=== PATIENT | male | born 1955 | race Caucasian/White ===

== ENCOUNTER 2024-02-15 20:26 | Observation (INO) ==
--- OUTSIDE RECORDS SUMMARY | 2024-02-15 20:31 | External Medical Summary | Summary of Care ---
Author Name Unknown Organization [facility] Address [address] [place] [address] Phone [phone] Care Team Providers Care Product Support Technician Name Role Phone Dariusz Billingsley MD Primary Care Provider [phone] [phone] Reason for Visit * Reason Onset Date Comments Precert Denied 12/29/2023 Please see note Encounter Details Date Type Department Care Team (Late st Contact Info) Description 12/29/2023 Telephone [facility], [address] [address] Ranjit Gregory MD [address] [place] [address] Precert Denied (Please see note) Allergies No known active allergiesdocumented as of this encounter (statuses as of 01/19/2024) Medications Medication Sig Dispensed Refills Start Date End Date Status Aspirin 81 MG Tablet Take 1 Tablet by mouth in the morning. Active amoxicillin (AMOXIL) 500 MG Capsule Take 4 tablets 1 hour prior to dental procedures 4 Cap 11 12/09/2017 Active Additional Information Patient not taking.Reported on 11/14/2023 sildenafil (REVATIO) 20 MG Tablet 2 to 4 tablets 1 hour before relations as needed. 40 Tab 11/04/2019 Active Gabapentin 300 MG Oral Capsule (Neurontin)Indicati ons:Cervical radicular pain Take by mouth 1 Capsule in the morning AND 1 Capsule before bedtime. 60 Capsule 01/31/2022 Active Additional Information Patient not taking.Reported on 09/12/2023 LORazepam 0.5 MG Oral Tablet (Ativan)Indications :RLS (restless legs syndrome) Take 1 Tablet by mouth at bedtime. 90 Tablet 10/11/2022 Active Additional Information Patient not taking.Reported on 11/14/2023 Rosuvastatin Calcium 10 MG Oral Tablet (Crestor) Take 1 Tablet by mouth in the morning. 90 Tablet 3 12/30/2022 Active Celecoxib 200 MG Oral Capsule (CeleBREX)Indicatio ns:Generalized osteoarthritis Take 1 Capsule by mouth in the morning. For pain. 30 Capsule 5 04/24/2023 Active Additional Information Patient not taking.Reported on 09/12/2023 Sildenafil Citrate 100 MG Oral Tablet TAKE 1 TABLET BY MOUTH EVERY DAY NEEDED 10 Tablet 10 09/10/2023 Active Acetaminophen ER 650 MG Oral Tablet Extended Release (Tylenol ER) Take by mouth. Active predniSONE 20 MG Oral Tablet (Deltasone) take 4 tablets by mouth daily for 3 days then 3 daily for 3 days ... (REFER TO PRESCRIPTION NOTES). 09/11/2023 Active Ibuprofen 600 MG Oral Tablet (Motrin) Take 1 Tablet by mouth every 6 hours as needed. Active Lisinopril 5 MG Oral Tablet (Prinivil)Indicatio ns:Bicuspid aortic valve take 1 tablet by mouth every morning 90 Tablet 12/03/2023 Active Tamsulosin HCl 0.4 MG Oral Capsule (Flomax)Indications :BPH with obstruction/lower urinary tract symptoms Take 1 Capsule by mouth in the morning. 90 Capsule 1 12/24/2023 Active Omeprazole 20 MG Oral Capsule Delayed Release (PriLOSEC) Take 1 Capsule by mouth in the morning. 90 Capsule 1 12/24/2023 Active Citalopram Hydrobromide 20 MG Oral Tablet (CeleXA)Indications :CARLA (generalized anxiety disorder) Take 1 Tablet by mouth in the morning. 90 Tablet 1 11/21/2022 01/12/20 24 Discontinu ed(Refill) documented as of this encounter (statuses as of 01/19/2024) Active Problems Problem Noted Date Diagnosed Date Obesity, Class II, BMI 35-39.9, isolated (see ac tual BMI) 10/11/2022 Organic erectile dysfunction 10/11/2022 Generalized osteoarthritis 10/11/2022 Neuroforaminal stenosis of cervical spine 2021 Dyslipidemia 12/29/2018 HTN, goal below 130/80 12/29/2018 Moderate aortic stenosis 03/02/2018 Moderate aortic insufficiency 03/02/2018 Gastroesophageal reflux disease with esophagitis 08/26/2017 CARLA (generalized anxiety disorder) 08/26/2017 BPH with obstruction/lower urinary tract symptom s 10/10/2014 KRISTAN (obstructive sleep apnea) 10/10/2014 Bicuspid aortic valve 02/22/2014 documented as of this encounter (statuses as of 01/19/2024) Resolved Problems Problem Noted Date Diagnosed Date Resolved Date RLS (restless legs syndrome) 10/11/2022 10/11/2022 Prediabetes 05/20/2022 10/11/2022 Overview: Per Prediabetes protocol Bilateral chronic serous otitis media 01/05/2021 03/21/2021 Mild aortic regurgitation 03/02/2018 Mild aortic stenosis by prior echocardiogram 8 03/02/2018 Unilateral inguinal hernia w ithout obstruction or gangrene 01/22/2016 08/26/2017 Umbilical hernia without obs truction and without gangrene 01/22/2016 08/26/2017 S/P bilateral hip replacements 01/21/2014 08/26/2017 History of bicuspid aortic valve 01/21/2014 02/22/2014 Tinea cruris 01/21/2014 04/12/2014 OTHER FUNCTIONAL DISORDER OF BLADDER 12/27/2003 01/21/2014 Aortic valve insufficiency, congenital 12/27/2003 01/21/2014 CVA 04/27/2002 08/26/2017 Fat embolism as an early com plication of trauma 03/09/2002 08/26/2017 OTHER FUNCTIONAL DISORDER OF BLADDER 01/22/2000 08/26/2017 documented as of this encounter (statuses as of 01/19/2024) Immunizations Name Administration Dates Next Due COVID-19 mRNA, LNP-s, No Pre serve, 2-Dose Series (GrayBug) 03/20/2021,07/18/2020,06/27/2020 Covid-19, Mrna, Lnp-s, Pf, B ivalent, 30 Mcg, IM, 12 yrs and above (GrayBug) 04/21/2022 Pneumococcal Conjugate Vacci ne, 20-valent ([id number]) 03/16/2022 Pneumococcal Polysaccharide PPV23 (Pneumovax) 03/23/2021 Season Influenza, Quad, PF, Adjuvanted, 65+ Yrs, IM (FLUAD) 03/16/2022 Seasonal Influenza, PF, 6 M & above, IM , (FluLaval or Fluzone) 05/03/2019,03/02/2018 Seasonal Influenza, Quadriva lent Hd (Fluzone Hd) 03/23/2021 Seasonal Influenza, Split, I IV3, With Preserve, Inj 02/22/2014,06/12/2000 02/22/2015 TDAP (age 10 and older)(Boostrix) 01/21/2014 Varicella Zoster Vaccine (Adult) 12/18/2015 Zoster Vaccine Recombinant (Shingrix) 03/16/2022 documented as of this encounter Social History Tobacco Use Types Packs/Day Years Used Date Smoking Tobacco: Former Cigarettes Q uit: 02/07/1974 Smokeless Tobacco: Former Quit: 02/07/1979 Alcohol Use Standard Drinks/Week Comments Yes 0 (1 standard drink = 0.6 oz pur e alcohol) occasional PHQ-2 Answer Date Recorded PHQ Adult Total Score 0 01/05/2021 Hunger Vital Sign Answer Date Recorded Within the past 12 months, y ou worried that your food would run out before you got the money to buy more. Never true 05/06/20 22 Within the past 12 months, t he food you bought just didn't last and you didn't have money to get more. Never true 05/06/2022 Sex and Gender Information Value Date Recorded Sex Assigned at Male 05/06/2022 6:17 PM EST Gender Identity Male 05/06/2022 6:17 PM EST Sexual Orientation Not on file Job Start Date Occupation Industry Not on file Not on file Not on file documented as of this encounter Miscellaneous Notes * Telephone Encounter - Ney Grimm MA - 01/19/2024 2:51 PM EDT Made patient aware, verbs understanding * Telephone Encounter - Ney Grimm MA - 01/19/2024 2:49 PM EDT Appeal was approved Auth Number: [id number] Valid Dates: 01/16/24-07/18/23 Right TFESI L5-S1 Injection * Telephone Encounter - Ney Grimm MA - 01/13/2024 12:52 PM EDT Made patient aware, verbs understanding Appeal letter completed and faxed * Telephone Encounter - Ranjit Gregory MD - 01/13/2024 12:05 PM EDT Appeal letter saved in chart. Please send to Samm Stroud along with supporting documentation (PT notes from [facility], office notes, etc). Thanks, Ranjit Gregory MD Interventional Pain Physician [facility] Anesthesiology [facility] * Telephone Encounter - Ney Grimm MA - 01/08/2024 10:32 AM EDT Made aware, verbs understanding called the insurance company and discussed the appeal process. Patient would like our office to complete the appeal to expedite this process. Will discuss with Colt about completing a "appeal letter." Patient received PT at [facility] in 2023- notes scanned in chart. Continues to do HEP- in nurses note from 11/14/23. * Telephone Encounter - Ney Grimm MA - 01/06/2024 2:20 PM EDT LM to CB Unable to Reach Insurance Denial- LM Explaining Procedure is cancelled for 01/15/24 Patient can contact his insurance company and try to appeal this decision. Will discuss with Colt after he returns. Right TFESI L5-S1 Injection * Telephone Encounter - Ney Grimm MA - 01/06/2024 2:08 PM EDT Called [employer]- unfortunately, this "Auth" is beyond the time to complete a P2P, and the case will remain denied. Procedure will need cancelled. The only option is to appeal the decision and completean appeal letter. Please refer to the denial for the appeal info. Denial Reasons: Active program to Manage Pain: -Physical Therapy -Functional Rehab Program -HEP * Telephone Encounter - Ranjit Gregory MD - 01/06/2024 9:38 AM EDT Please build time for a P2P in my schedule if possible next week. If it can be completed by a ROUTE CARRIER,please schedule with Hema. There is often a limited time period for which a peer to peer can be completed and I was on vacation when this was sent. Thanks, Ranjit Gregory MD Interventional Pain Physician [facility] Anesthesiology [facility] * Telephone Encounter - Elyse Dumont OSA - 12/29/2023 4:15 PM EDT This is to inform you that the following authorization request for Luke Briones has been denied. DOS- 01/15/24 Procedure- [address] Insurance- [facility] In/Out of Network- [place] Reason for Denial- Unable to authorize at this time with information provided. Peer to Peer can be performed by calling [phone] with tracking number [id number] or [id number]. Thank You, KRISTAN Govea 12/29/2023, 4:16 PM documented in this encounter Plan of Treatment Upcoming Encounters Date Type Department Care Team (Late st Contact Info) Description 02/19/2024 Hospital Encounter OR [facility], Operating Room [facility] [address] [place] [id number] Ranjit Gregory MD [address] [place] [address] 03/23/2024 8:30 AM EDT Office Visit [facility], [facility] [address] [facility] [place] [address] Ranjit Gregory MD [address] [place] [address] Scheduled Procedures Name Priority Associated Diagnoses Date/Ti me INJECTION TRANSFORAMINAL EPI DURAL LUMBAR OR SACRAL Lumbar radiculopathy COLONOSCOPY FLEXIBLE PROXIMAL DIAGNOSTIC Recall History of colon polyps Health Maintenance Due Date Last Done Comments Cologuard 02/09/2000 Fecal Occult Blood Test 02/09/2000 Sigmoidoscopy 02/09/2000 AAA Screening 02/09/2020 Adult Wellness Visit 2021 Depression Screening 01/05/2022 01/05/2021 Zoster Vaccines (3 of 3) 05/11/2022 03/16/2022, 12/07 COVID-19 Vaccine ( season) 2023 04/21/2022, 03/20/2021, 07/18/2020, Additional history exists DTaP,Tdap,and Td Vaccines (2 - Td or Tdap) 01/22/2024 01/21/2014 Influenza Vaccine (FLU shot) (#1) 2024 03/16/2022, 03/23/2021, 05/03/2019, Additional history exists GFR 12/31/2024 01/01/2024, 07/11, 10/01/2021, Additional history exists Albumin/Creatinine Ratio 07/31/2025 07/31/2022 Colonoscopy 11/09/2026 11/09/2021, 07/24/2010 Colorectal Cancer Screening 11/09/2026 Diabetes Screening 12/31/2026 01/01/2024, 0 07/31/2022, 07/31/2022, Additional history exists Lipid Panel 12/31/2028 01/01/2024, 08/07, 03/07/2020, Additional history exists RETIRED - COLONOSCOPY-EVERY 5 YRS AGES 18-100 Discontinued 11/09/2021, 07/24/2010 Pneumococcal Vaccine: 65+ Years Completed 03/16/2022, 03/23/2021 HPV (Gardasil) Vaccine Aged Out No lo nger eligible based on patient's age to complete this topic Hepatitis B Vaccine Aged Out No longe r eligible based on patient's age to complete this topic MENINGOCOCCAL (MENACTRA/MENVEO) Aged Out No longer eligible based on patient's age to complete this topic documented as of this encounter Medical Devices Implanted Type Area Unattended Ground Sensor Specialist Device Identifier Shelf Expiration Date Model / Serial / Lot Mesh 3dmax 4.1x6.2in Lft Lrg - [id number] Implanted:Qty: 1 on 01/22/2016 by Omid Dumont MD at OR [facility] Left: Groin CR BARD : DAVOL 09/03/2020 [id number] / / [id number] documented as of this encounter Care Teams Product Support Technician Relationship Specialty Start Date End Date Dariusz Billingsley MD [address] [place] [address] PCP - General Family Medicine 03/23/21 documented as of this encounter
--- OUTSIDE RECORDS SUMMARY | 2024-02-15 20:31 | External Medical Summary | Summary of Care ---
Author Name Unknown Organization [facility] Address [address] [place] [address] Phone [phone] Care Team Providers Care Professor Of Languages Name Role Phone Dariusz Billingsley MD Primary Care Provider [phone] [phone] Reason for Visit * Reason Onset Date Comments Precert Denied 12/29/2023 Please see note Encounter Details Date Type Department Care Team (Late st Contact Info) Description 12/29/2023 Telephone [facility], [address] [address] Ranjit Gregory MD [address] [place] [address] Precert Denied (Please see note) [...] mRNA, LNP-s, No Pre serve, 2-Dose Series (Spot Influence) 03/20/2021,07/18/2020,06/27/2020 Covid-19, Mrna, Lnp-s, Pf, B ivalent, 30 Mcg, IM, 12 yrs and above (Spot Influence) 04/21/2022 Pneumococcal Conjugate Vacci ne, 20-valent ([id number]) 03/16/2022 Pneumococcal Polysaccharide PPV23 (Pneumovax) 03/23/2021 Season [...] Thanks, Ranjit Gregory MD Interventional Pain Physician [facility] Anesthesiology [facility] * Telephone Encounter - Ney Grimm [...] MA - 01/06/2024 2:08 PM EDT Called Samm- unfortunately, this "Auth" is beyond the time [...] If it can be completed by a DIETARY AIDE,please schedule with Hema. There is often a limited time period for which a peer to peer can be completed and I was on vacation when this was sent. Thanks, Ranjit Gregory MD Interventional Pain Physician [facility] Anesthesiology [facility] * Telephone Encounter - Elyse Dumont OSA - 12/29/2023 4:15 PM EDT This is to inform you that the following authorization request for Luke Briones has been denied. DOS- 01/15/24 Procedure- [address] Insurance- [facility] In/Out of Network- [place] Reason for Denial- Unable to authorize at this time with information provided. Peer to Peer can be performed by calling [phone] with tracking number [id number] or [id number]. Thank You, KRISTAN Govea 12/29/2023, 4:16 PM documented in this encounter Plan of Treatment Upcoming Encounters Date Type Department Care Team (Late st Contact Info) Description 02/20/2024 9:30 AM EDT Office Visit [facility], [address] [address] Ranjit Gregory MD [address] [place] [address] Scheduled Procedures Name Priority Associated Diagnoses Date/Ti [...] this encounter Medical Devices Implanted Type Area Oil Expeller Device Identifier Shelf Expiration Date Model / Serial / Lot Mesh 3dmax 4.1x6.2in Lft Lrg - [id number] Implanted:Qty: 1 on 01/22/2016 by Omid Dumont MD at OR [facility] Left: Groin CR BARD : DAVOL 09/03/2020 [id number] / / [id number] documented as of this encounter Care Teams Professor Of Languages Relationship Specialty Start Date End Date Dariusz Billingsley MD [address] [place] [address] PCP - General Family Medicine 03/23/21 documented as of this encounter
--- OUTSIDE RECORDS SUMMARY | 2024-02-15 20:31 | External Medical Summary | Summary of Care ---
Author Name Unknown Organization [facility] Address [address] [place] [address] Phone [phone] Care Team Providers Care Relocation Commissioner Name Role Phone Dariusz Billingsley MD Primary Care Provider [phone] [phone] Reason for Visit * Reason Onset Date Comments Precert Denied 12/29/2023 Please see note Encounter Details Date Type Department Care Team (Late st Contact Info) Description 12/29/2023 Telephone [facility], [address] [address] Ranjit Gregory MD [address] [place] [address] Precert Denied (Please see note) Allergies No known active allergiesdocumented as of this encounter (statuses as of 01/13/2024) Medications Medication Sig Dispensed Refills Start Date [...] 11/04/2019 Active Gabapentin 300 MG Oral Capsule (Neurontin)Indicatio ns:Cervical radicular pain Take by mouth 1 Capsule in the morning AND 1 Capsule before bedtime. 60 Capsule 01/31/2022 Active Additional Information Patient not taking.Reported on 09/12/2023 LORazepam 0.5 MG Oral Tablet (Ativan)Indications: RLS (restless legs syndrome) Take 1 Tablet by mouth at bedtime. 90 Tablet 10/11/2022 Active Additional Information Patient not taking.Reported on 11/14/2023 Citalopram Hydrobromide 20 MG Oral Tablet (CeleXA)Indications: CARLA (generalized anxiety disorder) Take 1 Tablet by mouth in the morning. 90 Tablet 1 11/21/2022 Active Rosuvastatin Calcium 10 MG Oral Tablet (Crestor) Take 1 Tablet by mouth in the morning. 90 Tablet 3 12/30/2022 Active Celecoxib 200 MG Oral Capsule (CeleBREX)Indication s:Generalized osteoarthritis Take 1 Capsule by mouth in [...] needed. Active Lisinopril 5 MG Oral Tablet (Prinivil)Indication s:Bicuspid aortic valve take 1 tablet by mouth every morning 90 Tablet 12/03/2023 Active Tamsulosin HCl 0.4 MG Oral Capsule (Flomax)Indications: BPH with obstruction/lower urinary tract symptoms Take 1 Capsule by mouth in the morning. 90 Capsule 1 12/24/2023 Active Omeprazole 20 MG Oral Capsule Delayed Release (PriLOSEC) Take 1 Capsule by mouth in the morning. 90 Capsule 1 12/24/2023 Active documented as of this encounter (statuses as of 01/13/2024) Active Problems Problem Noted Date Diagnosed Date [...] as of this encounter (statuses as of 01/13/2024) Resolved Problems Problem Noted Date Diagnosed Date [...] as of this encounter (statuses as of 01/13/2024) Immunizations Name Administration Dates Next Due COVID-19 mRNA, LNP-s, No Pre serve, 2-Dose Series (Confer) 03/20/2021,07/18/2020,06/27/2020 Covid-19, Mrna, Lnp-s, Pf, B ivalent, 30 Mcg, IM, 12 yrs and above (Pfizer) 04/21/2022 Pneumococcal Conjugate Vacci ne, 20-valent ([id number]) 03/16/2022 Pneumococcal Polysaccharide PPV23 (Pneumovax) 03/23/2021 Season [...] Thanks, Ranjit Gregory MD Interventional Pain Physician [facility] Anesthesiology [facility] * Telephone Encounter - Ney Grimm [...] If it can be completed by a PELLET PREPARATION OPERATOR,please schedule with Hema. There is often a limited time period for which a peer to peer can be completed and I was on vacation when this was sent. Thanks, Ranjit Gregory MD Interventional Pain Physician [facility] Anesthesiology [facility] * Telephone Encounter - Elyse Dumont OSA - 12/29/2023 4:15 PM EDT This is to inform you that the following authorization request for Luke Briones has been denied. DOS- 01/15/24 Procedure- [id number] Insurance- [facility] In/Out of Network- [place] Reason for Denial- Unable to authorize at this time with information provided. Peer to Peer can be performed by calling [phone] with tracking number [id number] or [id number]. Thank You, KRISTAN Govea 12/29/2023, 4:16 PM documented in this encounter Plan of Treatment Upcoming Encounters Date Type Department Care Team (Late st Contact Info) Description 02/20/2024 9:30 AM EDT Office Visit Inter[facility] Pain Center, [address] [place] [address] Ranjit Gregory MD [address] [place], [place] [address] [address] Scheduled Procedures Name Priority Associated Diagnoses Date/Ti me INJECTION TRANSFORAMINAL EPI DURAL LUMBAR OR SACRAL Lumbar radiculopathy COLONOSCOPY FLEXIBLE PROXIMAL DIAGNOSTIC Recall History of colon polyps Health Maintenance Due Date Last Done Comments Cologuard 02/09/2000 Fecal Occult Blood Test 02/09/2000 Sigmoidoscopy 02/09/2000 AAA Screening 02/09/2020 Depression Screening 01/05/2022 01/05/2021 Zoster Vaccines (3 [...] this encounter Medical Devices Implanted Type Area Establishment Guide Device Identifier Shelf Expiration Date Model / Serial / Lot Mesh 3dmax 4.1x6.2in Lft Lrg - [id number] Implanted:Qty: 1 on 01/22/2016 by Omid Dumont MD at OR [facility] Left: Groin CR BARD : DAVOL 09/03/2020 [id number] / / [id number] documented as of this encounter Care Teams Relocation Commissioner Relationship Specialty Start Date End Date Dariusz Billingsley MD [address] [place] [address] PCP - General Family Medicine 03/23/21 documented as of this encounter
--- OUTSIDE RECORDS SUMMARY | 2024-02-15 20:31 | External Medical Summary | Summary of Care ---
Author Name Unknown Organization [facility] Address [address] [place] [address] Phone [phone] Care Team Providers Care Dude Ranch Manager Name Role Phone Dariusz Billingsley MD Primary Care Provider [phone] [phone] Reason for Visit * Reason Onset Date Comments Precert Denied 12/29/2023 Please see note Encounter Details Date Type Department Care Team (Late st Contact Info) Description 12/29/2023 Telephone [facility], [address] [address] Ranjit Gregory MD [address] [place] [address] Precert Denied (Please see note) [...] mRNA, LNP-s, No Pre serve, 2-Dose Series (Picturelife) 03/20/2021,07/18/2020,06/27/2020 Covid-19, Mrna, Lnp-s, Pf, B ivalent, 30 Mcg, IM, 12 yrs and above (Picturelife) 04/21/2022 Pneumococcal Conjugate Vacci ne, 20-valent ([id number]) 03/16/2022 Pneumococcal Polysaccharide PPV23 (Pneumovax) 03/23/2021 Season [...] Thanks, Ranjit Gregory MD Interventional Pain Physician [facility] Anesthesiology [facility] * Telephone Encounter - Ney Grimm MA [...] If it can be completed by a NURSE TRANSITION,please schedule with Hema. There is often a limited time period for which a peer to peer can be completed and I was on vacation when this was sent. Thanks, Ranjit Gregory MD Interventional Pain Physician [facility] Anesthesiology [facility] * Telephone Encounter - Elyse Dumont OSA - 12/29/2023 4:15 PM EDT This is to inform you that the following authorization request for Luke Briones has been denied. DOS- 01/15/24 Procedure- [id number] Insurance- [facility] In/Out of Network- [place] Reason for Denial- Unable to authorize at this time with information provided. Peer to Peer can be performed by calling [phone] with tracking number [id number] or [id number]. Thank You, KRISTAN Govea 12/29/2023, 4:16 PM documented in this encounter Plan of Treatment Upcoming Encounters Date Type Department Care Team (Late st Contact Info) Description 02/20/2024 9:30 AM EDT Office Visit [facility], [address] [address] Ranjit Gregory MD [address] [place] [address] Scheduled Procedures Name Priority Associated Diagnoses Date/Ti [...] this encounter Medical Devices Implanted Type Area Trekking Guide Device Identifier Shelf Expiration Date Model / Serial / Lot Mesh 3dmax 4.1x6.2in Lft Lrg - [id number] Implanted:Qty: 1 on 01/22/2016 by Omid Dumont MD at OR [facility] Left: Groin CR BARD : DAVOL 09/03/2020 [id number] / / [id number] documented as of this encounter Care Teams Dude Ranch Manager Relationship Specialty Start Date End Date Dariusz Billingsley MD [address] [place] [address] PCP - General Family Medicine 03/23/21 documented as of this encounter
--- OUTSIDE RECORDS SUMMARY | 2024-02-15 20:31 | External Medical Summary | Summary of Care ---
Author Name Unknown Organization [facility] Address [address] [place] [address] Phone [phone] Care Team Providers Care Misdraw Hand Name Role Phone Fanny Bill MD Primary Care Provider [phone] Reason for Visit * Reason Onset Date Comments Medication Refill 01/12/2024 Encounter Details Date Type Department Care Team (Late st Contact Info) Description 01/12/2024 Refill Family Practice [facility] [address] [facility] [place] [address] Fanny Bill MD [address] [place] [address] CARLA (generalized anxiety disorder) Allergies No known active allergiesdocumented as of [...] by mouth in the morning. 90 Tablet 01/13/2024 Active Citalopram Hydrobromide 20 MG Oral Tablet [...] mRNA, LNP-s, No Pre serve, 2-Dose Series ([employer]) 03/20/2021,07/18/2020,06/27/2020 Covid-19, Mrna, Lnp-s, Pf, B ivalent, 30 Mcg, IM, 12 yrs and above ([employer]) 04/21/2022 Pneumococcal Conjugate Vacci ne, 20-valent ([id number]) 03/16/2022 Pneumococcal Polysaccharide PPV23 (Pneumovax) 03/23/2021 Season Influenza, Quad, PF, Adjuvanted, 65+ Yrs, IM (FLUAD) 03/16/2022 Seasonal Influenza, PF, 6 M & above, IM , (FluLaval or Fluzone) 05/03/2019,03/02/2018 Seasonal Influenza, Quadriva lent Hd (Fluzone Hd) 03/23/2021 Seasonal Influenza, Split, I IV3, With Preserve, Inj 02/22/2014 02/22/2015 TDAP (age 10 and older)(Boostrix) 01/21/2014 [...] encounter Miscellaneous Notes * Telephone Encounter - Fanny Bill MD - 01/13/2024 4:15 PM EDTSigned Prescriptions: Disp Refills Citalopram Hydrobromide 20 MG Oral Tablet *90 Tab*0 Sig: Take 1 Tablet by mouth in the morning. Authorizing Provider: FANNY BILL * Telephone Encounter - Judi Araiza CPhT - 01/13/2024 3:57 PM EDTPending Prescriptions: Disp Refills Citalopram Hydrobromide 20 MG Oral Tablet *90 Tab*0 Sig: Take 1 Tablet by mouth in the morning. * Telephone Encounter - Judi Araiza CPhT - 01/13/2024 3:55 PM EDT Received message from [facility] regarding patient needing an appointment. Call Placed, Pt was agreeable to set up appointment but did not want to schedule at this time. Patient advised they will call back to set up appointment. Thank you, Judi Araiza CPhT Cnc Laser Operator III [facility] ([facility]) [address] [place] [address], [address] 38-74 * Telephone Encounter - Laureen Real [facility] - 01/13/2024 3:22 PM EDTPending Prescriptions: Disp Refills Citalopram Hydrobromide 20 MG Oral Tablet *90 Tab*0 Sig: Take 1 Tablet by mouth in the morning. * Telephone Encounter - Laureen Real RPh - 01/13/2024 3:22 PM EDT 2nd attempt Please contact patient so that an appointment can be scheduled with his PRIMARY CARE provider before this refill can be authorized. After contacting patient, please forward request to Fanny Bill MD. Med not filled since 11/21/22. Last filled in May per adherence tracker. Last Visit: 10/11/2022 (in office), 08/19/2023 (telemedicine) Next Visit: Visit date not found Thank you, Laureen Real, PharmD Clinical Pharmacist [facility]) 01/13/24 3:21 PM [phone] * Telephone Encounter - Laureen Real RPh - 01/13/2024 3:21 PM EDT Pending Prescriptions: Disp Refills Citalopram Hydrobromide 20 MG Oral Tablet*90 Tab*0 Sig: Take 1 Tablet by mouth in the morning. Last Visit: 10/11/2022 (in office), 08/19/2023 (telemedicine) Next Visit: Visit date not found If no future appointments scheduled, and last appointment is greater than a year ago, please schedule patient for a follow-up appointment Last date the medication was ordered: 11/21/22 Pharmacy: [id number] [facility] Is this request for a controlled substance? No Urine Drug Screen:No results found for this or any previous visit. Patient Phone Numbers Labs: Lab Results Component Value Date/Time CREAT 0.9 01/01/2024 07:35 AM CREAT 0.8 03/07/2020 12:00 AM CREAT 1.0 01/01/2016 03:28 PM POTASSIUM 4.6 01/01/2024 07:35 AM POTASSIUM 4.3 03/07/2020 12:00 AM POTASSIUM 4.5 01/01/2016 03:28 PM TSH 1.43 07/31/2022 02:49 PM LDLCALC 48 01/01/2024 07:35 AM LDLCALC 48 03/07/2020 12:00 AM ALT 36 01/01/2024 07:35 AM ALT 29 03/07/2020 12:00 AM ALT 32 01/08/1999 11:42 AM HGBA1C 5.5 07/31/2022 02:49 PM documented in this encounter Plan of Treatment Upcoming Encounters Date Type Department Care Team (Late st Contact Info) Description 02/20/2024 9:30 AM EDT Office Visit Interventional Pain Center, [facility] [address] [place] [address] Ranjit Gregory MD [address] [facility] [place] [address] Scheduled Procedures Name Priority Associated Diagnoses Date/Ti [...] 05/03/2019, Additional history exists GFR 12/31/2024 01/01/2024, /07/2022, 10/01/2021, Additional history exists Albumin/Creatinine Ratio 07/31/2025 [...] this encounter Medical Devices Implanted Type Area Mason Tender Device Identifier Shelf Expiration Date Model / Serial / Lot Mesh 3dmax 4.1x6.2in Lft Lrg - [id number] Implanted:Qty: 1 on 01/22/2016 by Omid Dumont MD at OR [facility] Left: Groin CR BARD : DAVOL 09/03/2020 [id number] / / [id number] documented as of this encounter Visit Diagnoses Diagnosis CARLA (generalized anxiety disorder) Generalized anxiety disorder documented in this encounter Care Teams Misdraw Hand Relationship Specialty Start Date End Date Fanny Bill MD [address] [facility] [place] [address] PCP - General Family Medicine 03/23/21 documented as of this encounter
--- OUTSIDE RECORDS SUMMARY | 2024-02-15 20:31 | External Medical Summary | Summary of Care ---
Author Name Unknown Organization [facility] Address [address] [place] [address] Phone [phone] Care Team Providers Care Cotton Program Technician Name Role Phone Dariusz Billingsley MD Primary Care Provider [phone] Reason for Visit * Reason Onset Date Comments Precert Denied 12/29/2023 Please see note Encounter Details Date Type Department Care Team (Late st Contact Info) Description 12/29/2023 Telephone Interventional Pain Center, [address] [address] Ranjit Gregory MD [address] [place] [address] Precert Denied (Please see note) [...] mRNA, LNP-s, No Pre serve, 2-Dose Series ([employer]) 03/20/2021,07/18/2020,06/27/2020 Covid-19, Mrna, Lnp-s, Pf, B ivalent, 30 Mcg, IM, 12 yrs and above (Pfizer) 04/21/2022 Pneumococcal Conjugate Vacci ne, 20-valent ([id number]) 03/16/2022 Pneumococcal Polysaccharide PPV23 (Pneumovax) 03/23/2021 Season [...] encounter Miscellaneous Notes * Telephone Encounter - Ranjit Gregory MD - 01/13/2024 12:05 PM EDT Appeal letter saved in chart. Please send to Samm Stroud along with supporting documentation (PT notes from Cristian, office notes, etc). Thanks, Ranjit Gregory MD Interventional Pain Physician [facility] Anesthesiology [facility] * Telephone Encounter - Ney Grimm [...] If it can be completed by a VAMP CUT OUT WORKER,please schedule with Hema. There is often a limited time period for which a peer to peer can be completed and I was on vacation when this was sent. Thanks, Ranjit Gregory MD Interventional Pain Physician [facility] Anesthesiology [facility] * Telephone Encounter - Elyse Dumont OSA - 12/29/2023 4:15 PM EDT This is to inform you that the following authorization request for Luke Briones has been denied. DOS- 01/15/24 Procedure- [id number]- [facility] In/Out of Network- [place] Reason for Denial- Unable to authorize at this time with information provided. Peer to Peer can be performed by calling [phone] with tracking number [id number] or [id number]. Thank You, KRISTAN Govea 12/29/2023, 4:16 PM documented in this encounter Plan of Treatment Upcoming Encounters Date Type Department Care Team (Late st Contact Info) Description 02/20/2024 9:30 AM EDT Office Visit Interventional Pain Center, [address] [address] Ranjit Gregory MD [address] [place] [address] Scheduled Procedures Name Priority Associated Diagnoses [...] this encounter Medical Devices Implanted Type Area Drying Can Worker Device Identifier Shelf Expiration Date Model / Serial / Lot Mesh 3dmax 4.1x6.2in Lft Lrg - [id number] Implanted:Qty: 1 on 01/22/2016 by Omid Dumont MD at OR [facility] Left: Groin CR BARD : DAVOL 09/03/2020 [id number] / / [id number] documented as of this encounter Care Teams Cotton Program Technician Relationship Specialty Start Date End Date Dariusz Billingsley MD [address] [place] [address] PCP - General Family Medicine 03/23/21 documented as of this encounter
--- OUTSIDE RECORDS SUMMARY | 2024-02-15 20:32 | External Medical Summary ---
Author Name Unknown Address Unknown Organization K01:[facility]ORATORY [facility] - [address] [place] [address] Laboratory Report Ordering Provider Test Date Status VIBHA DENNISLAURA 01/01/2024 07:35:08 Final Observation Date Value Abnormality Reference (Units ) Status BUN 01/01/2024 07:35:08 27 Above high normal 6-20 (mg/dL) Final Creatinine 01/01/2024 07:35:08 0.9 0.6-1.2 (mg/dL) Final Glomerular filtration rate/1.73 sq M.predicted [Volume Rate/Area] in Serum, Plasma or Blood by Creatinine-based formula (CKD-EPI) 01/01/2024 07:35:08 >90 >=60 (mL/min) Final eGFR is calculated based on the CKD-EPI 2020 equation. Sodium 01/01/2024 07:35:08 141 135-146 (m mol/L) Final Potassium 01/01/2024 07:35:08 4.6 3.5-5.1 (m mol/L) Final Cl 01/01/2024 07:35:08 106 98-107 (mm ol/L) Final CO2 01/01/2024 07:35:08 24 22-32 (mmo l/L) Final Anion gap 01/01/2024 07:35:08 11 7-15 (mmol /L) Final Glucose 01/01/2024 07:35:08 84 70-120 (mg /dL) Final Albumin 01/01/2024 07:35:08 3.9 3.8-5.0 (g /dL) Final AST (Aspartate aminotransferase) 01/01/2024 07:35:08 32 10-50 (U/L) Final Alk Phos 01/01/2024 07:35:08 66 35-130 (U/ L) Final Bilirubin, Total 01/01/2024 07:35:08 0.3 <=1 .2 (mg/dL) Final Calcium 01/01/2024 07:35:08 9.2 8.4-10.2 ( mg/dL) Final Protein 01/01/2024 07:35:08 6.0 6.0-8.3 (g /dL) Final ALT (Alanine aminotransferase) 01/01/2024 07:35:08 36 10-50 (U/L) Final Performing Location LAB[facility]ATORY [facility] - [facility] [address] [facility] [address]
--- OUTSIDE RECORDS SUMMARY | 2024-02-15 20:32 | External Medical Summary | Summary of Care ---
Author Name Unknown Organization [facility] Address [address] [place] [address] Phone [phone] Care Team Providers Care Safe And Vault Mechanic Name Role Phone Dariusz Billingsley MD Primary Care Provider [phone] Reason for Visit * Reason Comments Return Visit Evaluate low back pa in Pain Right buttock, right posterior thigh, knee, almazan, foot. Constant throbbing. Constant tightness in low back. Causes weakenss in right leg. Intermittent burning right foot, almazan, knee. Ongoing, worsening since fall 8 weeks ago. * Evaluate & Treat - Unlimited Visits (Within 10 days (routine)) - Pending Review Specialty Diagnoses / Procedures Referred By Contmary t Referred To Contact Pain Management / Pain Medicine Diagnoses Acute right-sided low back pain with right-sided sciatica Maggi Garnett DO [address] [place] [address] Referral ID Status Reason Start Date Expiration Date Visits Requested Visits Authorized [id number] Pending Review Specialty Services Required 08/19/[phone] Encounter Details Date Type Department Care Team (Late st Contact Info) Description 09/12/2023 10:00 AM EDT [facility] [address] [facility] [id number] [facility]jit [facility] [address] [facility] [place] [id number] Lumbar radicular pain* Allergies No known active allergiesdocumented as of this encounter (statuses as of 09/15/2023) Medications Medication Sig Dispensed Refills Start Date End Date Status Aspirin 81 MG Tablet Take 1 Tablet by mouth in the morning. 0 Active amoxicillin (AMOXIL) 500 MG Capsule Take 4 tablets 1 hour prior to dental procedures 4 Cap 11 12/09/2017 Active sildenafil (REVATIO) 20 MG Tablet 2 to 4 tablets 1 hour before relations as needed. 40 Tab 0 11/04/2019 Active Gabapentin 300 MG Oral Capsule (Neurontin)Indicatio ns:Cervical radicular pain Take by mouth 1 Capsule in the morning AND 1 Capsule before bedtime. 60 Capsule 0 01/31/2022 Active Additional Information Patient not taking.Reported on 09/12/2023 LORazepam 0.5 MG Oral Tablet (Ativan)Indications: RLS (restless legs syndrome) Take 1 Tablet by mouth at bedtime. 90 Tablet 0 10/11/2022 Active Citalopram Hydrobromide 20 MG Oral Tablet (CeleXA)Indications: CARLA (generalized anxiety disorder) Take 1 Tablet by mouth in the morning. 90 Tablet 1 11/21/2022 Active Rosuvastatin Calcium 10 MG Oral Tablet (Crestor) Take 1 Tablet by mouth in the morning. 90 Tablet 3 12/30/2022 Active Tamsulosin HCl 0.4 MG Oral Capsule (Flomax)Indications: BPH with obstruction/lower urinary tract symptoms Take 1 Capsule by mouth in the morning. 90 Capsule 3 12/30/2022 Active Omeprazole 20 MG Oral Capsule Delayed Release (PriLOSEC) Take 1 Capsule by mouth in the morning. 90 Capsule 3 12/30/2022 Active Celecoxib 200 MG Oral Capsule (CeleBREX)Indication s:Generalized osteoarthritis Take 1 Capsule by mouth in the morning. For pain. 30 Capsule 5 04/24/2023 Active Additional Information Patient not taking.Reported on 09/12/2023 Lisinopril 5 MG Oral Tablet (Prinivil)Indication s:Bicuspid aortic valve Take 1 Tablet by mouth in the morning. 90 Tablet 1 05/28/2023 Active Sildenafil Citrate 100 MG Oral Tablet TAKE 1 TABLET BY MOUTH EVERY DAY NEEDED 10 Tablet 10 09/10/2023 Active documented as of this encounter (statuses as of 09/15/2023) Active Problems Problem Noted Date Diagnosed Date [...] as of this encounter (statuses as of 09/15/2023) Resolved Problems Problem Noted Date Diagnosed Date [...] as of this encounter (statuses as of 09/15/2023) Immunizations Name Administration Dates Next Due COVID-19 mRNA, LNP-s, No Pre serve, 2-Dose Series ([employer]) 03/20/2021,07/18/2020,06/27/2020 Covid-19, Mrna, Lnp-s, Pf, B ivalent, 30 Mcg, IM, 12 yrs and above (Pfizer) 04/21/2022 Pneumococcal Conjugate Vacci ne, 20-valent ([id number]) 03/16/2022 Pneumococcal Polysaccharide PPV23 (Pneumovax) 03/23/2021 Season [...] uit: 02/07/1974 Smokeless Tobacco: Former Quit: 02/07/1979 Tobacco Cessation:Counseling Given: No Alcohol Use Standard Drinks/Week Comments Yes 0 [...] on file documented as of this encounter Last Filed Vital Signs Vital Sign Reading Time Taken Comments Blood Pressure 94/73 09/12/2023 9:47 AM EDT Pulse 70 09/12/2023 9:47 AM EDT Temperature 36.3 C (97.3 F) 09/12/2023 9:47 AM ED T Respiratory Rate - - Oxygen Saturation 99% 09/12/2023 9:47 AM EDT Inhaled Oxygen Concentration - - Weight - - Height - - Body Mass Index - - documented in this encounter Progress Notes * Ranjit Gregory MD - 09/12/2023 9:53 AM EDT CHIEF COMPLAINT: Luke Briones a 68 year old male is here for reevaluation of his low back pain andleg pain. HPI: He presents today with right sided low back and leg pain. He describes the pain as starting in the right side of his low back with radiation to the right buttock, right posterior thigh, right knee, right anterior calf to the top of the foot. Exacerbating factors include prolonged sitting and layingdown. Alleviating factors include repositioning, standing up, and physical therapy. Review of patient's allergies indicates: No Known Allergies MEDICATIONS : Current Outpatient Medications Medication Sig Dispense Refill Aspirin 81 MG Tablet Take 1 Tablet by mouth in the morning. amoxicillin (AMOXIL) 500 MG Capsule Take 4 tablets 1 hour prior to dental procedures 4 Cap 11 sildenafil (REVATIO) 20 MG Tablet 2 to 4 tablets 1 hour before relations as needed. 40 Tab 0 Gabapentin 300 MG Oral Capsule (Neurontin) Take by mouth 1 Capsule in the morning AND 1 Capsule before bedtime. (Patient not taking: Reported on 09/12/2023) 60 Capsule 0 LORazepam 0.5 MG Oral Tablet (Ativan) Take 1 Tablet by mouth at bedtime. 90 Tablet 0 Citalopram Hydrobromide 20 MG Oral Tablet (CeleXA) Take 1 Tablet by mouth in the morning. 90 Tablet1 Rosuvastatin Calcium 10 MG Oral Tablet (Crestor) Take 1 Tablet by mouth in the morning. 90 Tablet 3 Tamsulosin HCl 0.4 MG Oral Capsule (Flomax) Take 1 Capsule by mouth in the morning. 90 Capsule 3 Omeprazole 20 MG Oral Capsule Delayed Release (PriLOSEC) Take 1 Capsule by mouth in the morning. 90Capsule 3 Celecoxib 200 MG Oral Capsule (CeleBREX) Take 1 Capsule by mouth in the morning. For pain. (Patientnot taking: Reported on 09/12/2023) 30 Capsule 5 Lisinopril 5 MG Oral Tablet (Prinivil) Take 1 Tablet by mouth in the morning. 90 Tablet 1 Sildenafil Citrate 100 MG Oral Tablet TAKE 1 TABLET BY MOUTH EVERY DAY NEEDED 10 Tablet 10 No current facility-administered medications for this visit. REVIEW OF SYSTEMS: As per HPI PHYSICAL EXAM: BP 94/73 (BP Site: Right Arm, BP Position: Sitting, BP Cuff Size: Large) | Pulse 70 | Temp 36.3 C(97.3 F) (Temporal Artery) | SpO2 99% HEENT: Head normocephalic, bilateral tm's clear, perrla,eomi, sclera clear, nasopharynx clear, oropharynx clear, and neck supple, no adenopathy Heart: regular rate and rhythm Lungs: clear to auscultation bilaterally Musculoskeletal exam: Upon initial assessment, the patient is seated in a comfortable position. Upon inspection there is not scoliosis of the thoracolumbar spine. Muscle bulk appears adequate. Palpation exam does not reveal midline lumbar tenderness and does reveal lumbar paraspinous tenderness. There is not tenderness to palpation of the sacroiliac joints bilaterally ROM lumbar spine is limited. There is discomfort with back extension and rotation bilaterally. Motor strength exam reveals: hip flexion R 5/5 L 5/5 knee extension R 5/5 L 5/5 knee flexion R 5/5 L 5/5 ankle dorsiflexion R 5/5 L 5/5 ankle plantarflexion R 5/5 L 5/5 EHL R 5/5 L 5/5 Deep tendon reflexes, 2+ patellar, 2+ Achilles, no clonus. Sensory exam is intact to light touch and sharp stimulation grossly in the bilateral upper and lower extremities. ASSESSMENT: 68 year old male with right sided low back and leg pain consistent with lumbar radicular pain in the L5-S1 dermatomal distribution. 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 Physical exam remarkable for positive straight leg raise bilaterally PLAN: L5-S1 interlaminar epidural steroid injection Continue with current pain medications as tolerated. Remain as active as tolerated. RTC as needed I spent a total of 20-29 minutes (exact time 26 mins) on the date of service in preparation, delivery, and documentation of the care provided to Luke Briones excluding any time spent in the performance of separately billed services. Ranjit Gregory MD 09/12/2023 documented in this encounter Nursing Notes * Devika Flores, RN - 09/12/2023 9:34 AM EDT Referred by: PCP Maggi Garnett Imaging: MRI L spine 08/22/23, XR L spine 08/19/23 Chief Complaint Patient presents with Return Visit Evaluate low back pain Pain Right buttock, right posterior thigh, knee, almazan, foot. Constant throbbing. Constant tightness in low back. Causes weakenss in right leg. Intermittent burning right foot, almazan, knee. Ongoing, worsening since fall 8 weeks ago. Aggravating factors / limitations: prolonged sitting/car rides, laying down Alleviating factors: repositioning, standing up, PT, chiropractor, heat, counter pressure, TENS Previous Injections: LINDSAY C7-T1: 07/19/22, 12/07/20 Left shoulder: 07/20/21 Neck/spine Surgery: none Joint replacement Surgery: Bilateral THR, Left TKR Right ankle fusion, Pain medications: Ibuprofen (has prednisone rx, has not started until after IPM appt today) Blood thinners: ASA 81mg Diabetic: A1C 5.5 on 07/31/22 Physical Therapy: Cristian Suarez 2023 for lumbar radiculopathy Consults: Neurology Cl Estrella (EMG upper extremities 08/04/20) Ortho Ortho Piero Monte (shoulder injection) documented in this encounter Plan of Treatment Upcoming Encounters Date Type Department Care Team (Latest Contact Info) Description 10/13/2023 2:31 PM EDT Hospital Encounter [facility] Operating [facility] [address] [place] [phone] Ranjit Gregory MD [address] [place] [address] [place] [id number] 10/13/2023 2:31 PM EDT - 10/13/2023 2:50 PM EDT Surgery [facility], Operating Room [facility] [address] [place], [place] [address] [phone] Ranjit Gregory MD [address] [facility] [place] [address] INJECTION SPINE LUMBAR OR SACRAL 10/28/2023 1:00 PM EDT [address]ointment [address] [place] [address] 11/14/2023 10:00 AM EDT Office Visit [facility]ventional Pain Center, [address] [place] [address] Ranjit Gregory MD [address] [place] [address] [place] [address] Scheduled Procedures Name Priority Associated Diagnoses Date/Ti me INJECTION SPINE LUMBAR OR SACRAL Lumbar radiculopathy 10/13/2023 2:31 PM EDT COLONOSCOPY FLEXIBLE PROXIMAL DIAGNOSTIC Recall History of colon polyps Scheduled Referrals Name Type Priority Associated Diagnoses Orde r Schedule PAIN MEDICINE REFERRAL OP Referral Within 10 days (routine) Acute right-sided low back pain with right-sided sciatica Ordered: 08/19/2023 Health Maintenance Due Date Last Done Comments AAA Screening 02/09/2020 Depression Screening 01/05/2022 01/05/2021 Zoster Vaccines (3 of 3) 05/11/2022 03/16/2022, 12/07 COVID-19 Vaccine ( season) 2023 04/21/2022, 03/20/2021, 07/18/2020, Additional history exists GFR 07/31/2023 07/31/2022, /10/2021, 03/23/2021, Additional history exists DTaP,Tdap,and Td Vaccines (2 - Td or Tdap) 01/22/2024 01/21/2014 Influenza Vaccine (FLU shot) (Season Ended) 2024 03/16/2022, 03/23/2021, 05/03/2019, Additional history exists Albumin/Creatinine Ratio 07/31/2025 07/31/2022 Diabetes Screening 07/31/2025 07/31/2022, 0 07/31/2022, 05/08/2022, Additional history exists COLONOSCOPY-EVERY 5 YRS AGES 18-100 11/09/2026 11/09/2021, 07/24/2010 Lipid Panel 08/17/2027 08/16/2022, 02/08, 05/28/2019, Additional history exists Colonoscopy Discontinued 11/09/2021, 07/24/2010 Colorectal Cancer Screening Discontinued Pneumococcal Vaccine: 65+ Years Completed 03/16/2022, 03/23/2021 Cologuard Discontinued Fecal Occult Blood Test Discontinued GARDASIL-HPV IMMUNIZATION SERIES Aged Out No longer eligible based on patient's age to complete this topic Hepatitis B Aged Out No longer eligi ble based on patient's age to complete this topic MENINGOCOCCAL (MENACTRA/MENVEO) Aged Out No longer eligible based on patient's age to complete this topic Sigmoidoscopy Discontinued documented as of this encounter Medical Devices Implanted Type Area Button Cutting Machine Operator Device Identifier Shelf Expiration Date Model / Serial / Lot Mesh 3dmax 4.1x6.2in Lft Lrg - [id number] Implanted:Qty: 1 on 01/22/2016 by Omid Dumont MD at OR [facility] Left: Groin CR BARD : DAVOL 09/03/2020 [id number] / / [id number] documented as of this encounter Visit Diagnoses Diagnosis Lumbar radicular pain- Primary Thoracic or lumbosacral neuritis or radiculitis, unspecified Lumbar radiculopathy Thoracic or lumbosacral neuritis or radiculitis, unspecified documented in this encounter Care Teams Safe And Vault Mechanic Relationship Specialty Start Date End Date Dariusz Billingsley MD [address] [place] [address] PCP - General Family Medicine 03/23/21 documented as of this encounter"
--- OUTSIDE RECORDS SUMMARY | 2024-02-15 20:32 | External Medical Summary ---
Author Name Unknown Address Unknown Organization K01:[facility] [place] [facility] [address] [facility] [address] Laboratory Report Ordering Provider Test Date Status SHAQUILLE DENNIS 01/01/2024 07:35:08 Final Observation Date Value Abnormality Reference (Units ) Status WBC, Total 01/01/2024 07:35:08 6.94 4.00-10.80 (K/uL) Final RBC 01/01/2024 07:35:08 4.23 4.50-5.25 (M/uL) Final Hemoglobin 01/01/2024 07:35:08 13.0 Below low normal 14.0-16.8 (g/dL) Final HCT 01/01/2024 07:35:08 39.8 Below low normal 40.0-48.4 (%) Final MCV 01/01/2024 07:35:08 94.1 82.0-99.5 (fL) Final MCH 01/01/2024 07:35:08 30.7 27.0-34.0 (pg) Final MCHC 01/01/2024 07:35:08 32.7 32.0-36.0 (g/dL) Final RDW 01/01/2024 07:35:08 12.5 11.5-15.5 (%) Final Platelets 01/01/2024 07:35:08 225 140-400 (K/uL) Final MPV 01/01/2024 07:35:08 11.1 6.6-11.1 (fL) Final Nucleated erythrocytes/100 leukocytes [Ratio] in Blood by Automated count 01/01/2024 07:35:08 0 <=0 (/100 WBCs) Final Performing Location [facility] [place] [address] [place] [address]
--- OUTSIDE RECORDS SUMMARY | 2024-02-15 20:32 | External Medical Summary | Summary of Care ---
Author Name Unknown Organization [facility] Address [address] [place] [address] Phone [phone] Care Team Providers Care Jewel Stringer Name Role Phone Dariusz Billingsley MD Primary Care Provider [phone] Reason for Visit * Reason Onset Date Comments Precert Denied 12/29/2023 Please see note Encounter Details Date Type Department Care Team (Late st Contact Info) Description 12/29/2023 Telephone [facility], [address] [address] Ranjit Gregory MD [address] [place] [address] Precert Denied (Please see note) Allergies No known active allergiesdocumented as of this encounter (statuses as of 01/08/2024) Medications Medication Sig Dispensed Refills Start Date [...] as of this encounter (statuses as of 01/08/2024) Active Problems Problem Noted Date Diagnosed Date [...] as of this encounter (statuses as of 01/08/2024) Resolved Problems Problem Noted Date Diagnosed Date [...] as of this encounter (statuses as of 01/08/2024) Immunizations Name Administration Dates Next Due COVID-19 mRNA, LNP-s, No Pre serve, 2-Dose Series ([employer]) 03/20/2021,07/18/2020,06/27/2020 Covid-19, Mrna, Lnp-s, Pf, B ivalent, 30 Mcg, IM, 12 yrs and above (Pfizer) 04/21/2022 Pneumococcal Conjugate Vacci ne, 20-valent ([id number]) 03/16/2022 Pneumococcal Polysaccharide PPV23 (Pneumovax) 03/23/2021 Season [...] If it can be completed by a NATURAL RESOURCE TECHNICIAN,please schedule with Hema. There is often a limited time period for which a peer to peer can be completed and I was on vacation when this was sent. Thanks, Ranjit Gregory MD Interventional Pain Physician [facility] Anesthesiology [facility] * Telephone Encounter - Elyse Dumont OSA - 12/29/2023 4:15 PM EDT This is to inform you that the following authorization request for Luke Briones has been denied. DOS- 01/15/24 Procedure- [id number] Insurance- [facility] In/Out of Network- [place] Reason for Denial- Unable to authorize at this time with information provided. Peer to Peer can be performed by calling [phone] with tracking number [id number] or [id number]. Thank You, KRISTAN Govea 12/29/2023, 4:16 PM documented in this encounter Plan of Treatment Upcoming Encounters Date Type Department Care Team (Late st Contact Info) Description 02/20/2024 9:30 AM EDT Office Visit [facility], [facility] [address] [facility] [address] Ranjit Gregory MD [address] [place] [address] Scheduled Procedures Name Priority Associated Diagnoses Date/Ti me INJECTION TRANSFORAMINAL EPI DURAL LUMBAR OR SACRAL Lumbar radiculopathy COLONOSCOPY FLEXIBLE PROXIMAL DIAGNOSTIC Recall History of colon polyps Health Maintenance Due Date Last Done Comments Cologuard 02/09/2000 Fecal Occult Blood Test 02/09/2000 Sigmoidoscopy 02/09/2000 AAA Screening 02/09/2020 Depression Screening 01/05/2022 01/05/2021 Zoster Vaccines (3 of 3) 05/11/2022 03/16/2022, 12/07 COVID-19 Vaccine (5 - 2022- season) 2023 04/21/2022, 03/20/2021, 07/18/2020, Additional history [...] this encounter Medical Devices Implanted Type Area Human Relations Manager Device Identifier Shelf Expiration Date Model / Serial / Lot Mesh 3dmax 4.1x6.2in Lft Lrg - [id number] Implanted:Qty: 1 on 01/22/2016 by Omid Dumont MD at OR [facility] Left: Groin CR BARD : DAVOL 09/03/2020 [id number] / / [id number] documented as of this encounter Care Teams Jewel Stringer Relationship Specialty Start Date End Date Dariusz Billingsley MD [address] [place] [address] PCP - General Family Medicine 03/23/21 documented as of this encounter
--- OUTSIDE RECORDS SUMMARY | 2024-02-15 20:32 | External Medical Summary | Summary of Care ---
Author Name Unknown Organization [facility] Address [address] [place] [address] Phone [phone] Care Team Providers Care Manager Placement Name Role Phone Dariusz Billingsley MD Primary Care Provider [phone] [phone] Reason for Visit * Auth/Cert Specialty Diagnoses / Procedures Referred By Shira carrasco Referred To Contact Diagnoses Lumbar radiculopathy Lumbar radiculopathy [M54.16] Procedures INJECT DX/THER SUBSTANCE INTERLAMINAR LUMBAR/SACRAL W IMAGE GUIDE INJECTION SPINE LUMBAR OR SACRAL Ranjit Gregory MD [address] [place] [address] [address] [facility] [address] [place] [phone] Referral ID Status Reason Start Date Expiration Date Visits Re quested Visits Authorized [id number] Encounter Details Date Type Department Care Team (Latest Contact Info) Description 10/13/2023 9:46 AM EDT - 10/13/2023 10:48 AM EDT Hospital Encounter OR [facility], Operating Room [facility] [address] [place] [id number] Ranjit Gregory MD [address] [place] [address] Discharge Disposition: Home - Self Care Allergies No known active allergiesdocumented as of this encounter (statuses as of 10/13/2023) Medications Medication Sig Dispensed Refills Start Date [...] as of this encounter (statuses as of 10/13/2023) Active Problems Problem Noted Date Diagnosed Date [...] as of this encounter (statuses as of 10/13/2023) Resolved Problems Problem Noted Date Diagnosed Date [...] as of this encounter (statuses as of 10/13/2023) Immunizations Name Administration Dates Next Due COVID-19 mRNA, LNP-s, No Pre serve, 2-Dose Series ([employer]) 03/20/2021,07/18/2020,06/27/2020 Covid-19, Mrna, Lnp-s, Pf, B ivalent, 30 Mcg, IM, 12 yrs and above ([employer]) 04/21/2022 Pneumococcal Conjugate Vacci ne, 20-valent ([id number]) 03/16/2022 Pneumococcal Polysaccharide PPV23 (Pneumovax) 03/23/2021 Season [...] Sign Reading Time Taken Comments Blood Pressure 170/89 10/13/2023 10:42 AM EDT Pulse 64 10/13/2023 10:42 AM EDT Temperature 36.3 C (97.3 F) 10/13/2023 10:42 AM E DT Respiratory Rate 28 10/13/2023 10:35 AM EDT Oxygen Saturation 99% 10/13/2023 10:42 AM EDT Inhaled Oxygen Concentration - - Weight 102.1 kg (225 lb) 10/13/2023 9:56 AM EDT Height 172.7 cm (5' 8") 10/13/2023 9:56 AM EDT Body Mass Index 34.21 10/13/2023 9:56 AM EDT documented in this encounter Discharge Instructions * Discharge Instr - AVS* Ranjit Gregory MD - 10/13/2023 10:04 AM EDT Discharge Date: 10/13/2023 Check your Patient Education Brochure for further information. If you have any further questions call your physician at [phone]. The information below provides you with the instructions and the list of medications you need to betaking following discharge from the hospital. If you have any questions, please ask before leaving.If you have questions after you leave, you can reach us at the number above. You had the following procedure performed: Epidural Steroid Injection Wound Care: You may shower normally, but be sure to keep the injection site clean and dry. No soaking in a bathfor 48 hours. Blood Glucose: If you received an injection that contains steroid, your blood sugar WILL increase temporarily (up to 3-4 days after your injection). It is important to monitor your glucose closely (before and aftermeals and if you are feeling unwell) during this time and to reach out to your primary care provider to provide you additional insulin coverage if neccessary. Activity: You may resume your regular diet as tolerated. Return to normal activities slowly as tolerated. Walking is very important for healing and your rehabilitation. Initially, you should walk at least two to three times daily. Then slowly and gradually increase your distance as your tolerance for physical activity increases. You may go up and down stairs carefully. You may resume home medications. If you received sedation, for the next 24 hours, you should NOT: Drive a vehicle, operate power machinery or power equipment Drink alcoholic beverages, including beer Make important decisions, such as signing contracts, etc. Notify physician for: Temperature greater than 101 degrees F. Increased pain. Calf swelling or tenderness. Drainage or redness of the incision. Chest pain or shortness of breath (and go to the Emergency Department) Date you may return to work or school: today documented in this encounter H&P Notes * Ranjit Gregory MD - 10/13/2023 10:04 AM EDT Today's Date: 10/13/23 CHIEF COMPLAINT: Luke Briones a 68 year [...] include repositioning, standing up, and physical therapy. Allergies Review of patient's allergies indicates: No Known Allergies MEDICATIONS : Current Medications Current Outpatient Medications Medication Sig Dispense Refill [...] SYSTEMS: As per HPI PHYSICAL EXAM: BP 160/99 | Pulse 62 | Temp 35.8 C (96.4 F) | Resp 18 | Ht 1.727 m (5' 8") | Wt 102.1 kg (225 lb) | SpO2 96% | BMI 34.21 kg/m | BSA 2.21 m HEENT: Head normocephalic, bilateral tm's clear, perrla,eomi, [...] bilaterally PLAN: L5-S1 interlaminar epidural steroid injection documented in this encounter Nursing Notes * Carolina Peterson RN - 10/13/2023 10:46 AM EDT [address] [address] SameDay Surgery Discharge Note Name: Luke Briones Date: 10/13/2023 Time: 10:46 AM Discharge Disposition: Home Responsible adult as escort home: yes Transport Mode: Ambulatory Accompanied by: staff To: Car Belongings with patient: Yes Patient meets criteria to be transferred or discharged. documented in this encounter OR Notes * OR Surgeon - Ranjit Gregory MD - 10/13/2023 10:48 AM EDT Procedure Note Lumbar Interlaminar JOSE EDUARDO Procedure Date: 10/13/2023 Luke Briones Date of : 1955 Attending: Ranjit Gregory M.D. PREOPERATIVE DIAGNOSIS: Lumbar radicular pain POSTOPERATIVE DIAGNOSIS: SAME PROCEDURE PERFORMED: Interlaminar Epidural Steroid Injection at the L5-S1 level ESTIMATED BLOOD LOSS: None SPECIMENS AND DRAINS: None FLUOROSCOPY WAS USED. INDICATIONS FOR PROCEDURE: This is a 68 year old year old male with a clinical picture consistent with the above-mentioned diagnosis, resulting in lumbar radiculopathy. PROCEDURE AND FINDINGS: The patient was greeted in the pre procedure holding area. The risk, benefits and alternatives to the procedure were again reviewed with the patient and written informed consent was placed in the chart. Prior to the procedure a time out was completed, verifying correct patient, procedure, site, positioning, and implants and/or special equipment. The patient was taken to the procedure room and positioned prone on the fluoroscopy table. Then a magnetic healer film was taken to identify the correct level. The skin was prepped and draped in the usual sterile fashion. The overlying skin and subcutaneous tissue was anesthetized using a 25-guage 1-1/2 inchneedle with 1% buffered lidocaine for a total volume of 2 mls. Then a 20g, 9 cm Tuohy needle was advanced under fluorosocpic guidance using an AP, oblique and lateral views into the interlaminar space. A loss of resistance syringe was attached and loss of resistance to saline and air occurred. Then1-2 mls of Isovue-M 200mg/mL was injected under AP and confirmed adequate spread in the epidural spa ce without DSA. There was no evidence of intravascular uptake or intrathecal spread on imaging. A contralateral oblique view was also taken confirming adequate epidural spread. Then 2mls of PFNS mixed with 1mL of 10mg/mL dexamethasone was injected without incident. The needlewas flushed with a small amount of saline, re-styletted and removed. The needle insertion site was dressed appropriately. The patient was taken to the recovery room where he was monitored for a brief period of time. He tolerated the procedure well and were discharged home in stable condition with post procedural instructions. Follow-up will be in clinic. COMPLICATIONS: None documented in this encounter Plan of Treatment Upcoming Encounters Date Type Department Care Team (Late st Contact Info) Description 10/28/2023 1:00 PM EDT Appointment Cardiac Studies, [address] [place] [address] 11/14/2023 10:00 AM EDT Office Visit [facility], [address] [place] [address] Ranjit Gregory MD [address] [place] [address] Scheduled Procedures Name Priority Associated Diagnoses Date/Ti me INJECTION SPINE LUMBAR OR SACRAL Lumbar radiculopathy 10/13/2023 10:28 AM EDT COLONOSCOPY FLEXIBLE PROXIMAL DIAGNOSTIC Recall History of colon polyps Health Maintenance Due Date Last Done Comments Cologuard 02/09/2000 Fecal Occult Blood Test 02/09/2000 Sigmoidoscopy 02/09/2000 AAA Screening 02/09/2020 Depression Screening 01/05/2022 01/05/2021 Zoster Vaccines (3 of 3) 05/11/2022 03/16/2022, 12/07 COVID-19 Vaccine ( season) 2023 04/21/2022, 03/20/2021, 07/18/2020, Additional history exists GFR 07/31/2023 07/31/2022, 04/10/2021, 03/23/2021, Additional history exists DTaP,Tdap,and Td Vaccines (2 - Td or Tdap) 01/22/2024 01/21/2014 Influenza Vaccine (FLU shot) (Season Ended) 2024 03/16/2022, 03/23/2021, 05/03/2019, Additional history exists Albumin/Creatinine Ratio 07/31/2025 07/31/2022 Diabetes Screening 07/31/2025 07/31/2022, 0 07/31/2022, 05/08/2022, Additional history exists Colonoscopy 11/09/2026 11/09/2021, 07/24/2010 Colorectal Cancer Screening 11/09/2026 Lipid Panel 08/17/2027 08/16/2022, 02/08, 05/28/2019, Additional history exists RETIRED - COLONOSCOPY-EVERY 5 YRS AGES 18-100 Discontinued 11/09/2021, 07/24/2010 Pneumococcal Vaccine: 65+ Years Completed 03/16/2022, 03/23/2021 GARDASIL-HPV IMMUNIZATION SERIES Aged Out No longer eligible based on patient's age to complete this topic Hepatitis B Aged Out No longer eligi ble based on patient's age to complete this topic MENINGOCOCCAL (MENACTRA/MENVEO) Aged Out No longer eligible based on patient's age to complete this topic documented as of this encounter Medical Devices Implanted Type Area Care Attendant Device Identifier Shelf Expiration Date Model / Serial / Lot Mesh 3dmax 4.1x6.2in Lft Lrg - [id number] Implanted:Qty: 1 on 01/22/2016 by Omid Dumont MD at OR [facility] Left: Groin CR BARD : DAVOL 09/03/2020 [id number] / / [id number] documented as of this encounter Procedures Procedure Name Priority Date/Time Associated Diagnosis Comments FLUORO INTERVENTIONAL PAIN PROCEDURE NONBILLABLE Routine 10/13/2023 10:40 AM EDT documented in this encounter Results * FLUORO INTERVENTIONAL PAIN PROCEDURE NONBILLABLE (10/13/2023 10:40 AM EDT) Narrative Scheduling, Silent - 10/13/2023 10:40 AM EDT This procedure will not be read by a Radiologist. Please see operative note. Ranjit Gregroy MD RAD FLUOROSCOPY documented in this encounter Active and Recently Administered Medications Times are shown in EDT. PRN Medication Order 10/11/2023 10/12/2023 10/13/2023 buffered lidocaine 1 % inj (CANCELED) ONCE PRN INTRA PROCEDURE, Starting on 10/13/23 at 1037, Until Fri10/13/23 at 1039, Intra-Op 1037 (Given - Provid er: Ranjit Gregory MD) dexAMETHasone Sodium Phosphate 10 mg in sodium chloride 0.9 % 2 mL inj (CANCELED) ONCE PRN INTRA PROCEDURE, Starting on Fri10/13/23 at 1038, Until 10/13/23 at 1039, Intra-Op 1038 (Given - Provid er: Ranjit Gregory MD) Iopamidol (Isovue M 200) inj (CANCELED) ONCE PRN INTRA PROCEDURE, Starting on 10/13/23 at 1037, Until 10/13/23 at 1039, Intra-Op 1037 (Given - Provid er: Ranjit Gregory MD) documented in this encounter Care Teams Manager Placement Relationship Specialty Start Date End Date Dariusz Billingsley MD [address] [place] [address] PCP - General Family Medicine 03/23/21 documented as of this encounter
--- OUTSIDE RECORDS SUMMARY | 2024-02-15 20:32 | External Medical Summary ---
Author Name Unknown Address Unknown Organization K01:[facility] [place] [address] [address] Laboratory Report Ordering Provider Test Date Status SHAQUILLE DENNIS 01/01/2024 07:35:08 Final Observation Date Value Abnormality Reference (Units ) Status Triglyceride 01/01/2024 07:35:08 52 <=174 ( mg/dL) Final Triglyceride Reference Range s (mg/dL):
<150 Acceptable
150-174 Borderline high
175-499 High
>=500 Very high Cholesterol 01/01/2024 07:35:08 114 <200 (mg /dL) Final Total Cholesterol Reference Ranges (mg/dL):
<200 Desirable
200-239 Borderline high
>=240 High HDL 01/01/2024 07:35:08 56 >39 (mg/dL ) Final HDL Cholesterol Reference Ra nges (mg/dL):
>=60 High (Desirable)
<50 Low (Undesirable) For Females
<40 Low (Undesirable) For Males NON-HDL CHOLESTEROL 01/01/2024 07:35:08 58 <=159 (mg/dL) Final Non-HDL Cholesterol Referenc e Range (mg/dL):
<100 Target level for high risk ASCVD patient
<130 Optimal for general population
130-159 Near optimal for general population
160-189 Borderline High
190-219 High
>=220 Very High LDL, (calculated) 01/01/2024 07:35:08 48 <= 129 (mg/dL) Final LDL Cholesterol Reference Ra nges (mg/dL):
<70 Target level for high risk ASCVD patient
<100 Optimal for general population
100-129 Near optimal for general population
130-159 Borderline high
160-189 High
>=190 Very high Performing Location [facility] [place] [address] [place] [address]
--- OUTSIDE RECORDS SUMMARY | 2024-02-15 20:32 | External Medical Summary | Summary of Care ---
Author Name Unknown Organization [facility] Address [address] [place] [address] Phone [phone] Care Team Providers Care Tung Nut Grower Name Role Phone Dariusz Billingsley MD Primary Care Provider [phone] [phone] Reason for Visit * Reason Onset Date Comments Precert Denied 12/29/2023 Please see note Encounter Details Date Type Department Care Team (Late st Contact Info) Description 12/29/2023 Telephone Interventional Pain Center, [address] [address] Ranjit Gregory MD [address] [place] [address] Precert Denied (Please see note) [...] mRNA, LNP-s, No Pre serve, 2-Dose Series ([employer]) 03/20/2021,07/18/2020,06/27/2020 Covid-19, Mrna, Lnp-s, Pf, B ivalent, 30 Mcg, IM, 12 yrs and above (Pfizer) 04/21/2022 Pneumococcal Conjugate Vacci ne, 20-valent ([id number]) 03/16/2022 Pneumococcal Polysaccharide PPV23 (Pneumovax) 03/23/2021 Season [...] Program -HEP * Telephone Encounter - Ranjit Greogry MD - 01/06/2024 9:38 AM EDT Please build time for a P2P in my schedule if possible next week. If it can be completed by a AIRCRAFT MACHINIST,please schedule with Hema. There is often a limited time period for which a peer to peer can be completed and I was on vacation when this was sent. Thanks, Ranjit Gregory MD Interventional Pain Physician [facility] Anesthesiology [facility] * Telephone Encounter - Elyse Dumont OSA - 12/29/2023 4:15 PM EDT This is to inform you that the following authorization request for Luke Briones has been denied. DOS- 01/15/24 Procedure- [id number] Insurance- [facility] In/Out of Network- [place] Reason for Denial- Unable to authorize at this time with information provided. Peer to Peer can be performed by calling [phone] with tracking number [id number] or [id number]. Thank You, KRISTAN Govea 12/29/2023, 4:16 PM documented in this encounter Plan of Treatment Upcoming Encounters Date Type Department Care Team (Late st Contact Info) Description 02/20/2024 9:30 AM EDT Office Visit [facility], [facility] [address] [facility] [address] Ranjit Gregory MD [address] [place] [address] Scheduled Procedures Name Priority Associated [...] this encounter Medical Devices Implanted Type Area Clay Structure Builder And Servicer Device Identifier Shelf Expiration Date Model / Serial / Lot Mesh 3dmax 4.1x6.2in Lft Lrg - [id number] Implanted:Qty: 1 on 01/22/2016 by Omid Dumont MD at OR [facility] Left: Groin CR BARD : DAVOL 09/03/2020 [id number] / / [id number] documented as of this encounter Care Teams Tung Nut Grower Relationship Specialty Start Date End Date Dariusz Billingsley MD [address] [place] [address] PCP - General Family Medicine 03/23/21 documented as of this encounter
--- OUTSIDE RECORDS SUMMARY | 2024-02-15 20:32 | External Medical Summary | Summary of Care ---
Author Name Unknown Organization [facility] Address [address] [place] [address] Phone [phone] Care Team Providers Care Account Executive Name Role Phone Fanny Bill MD Primary Care Provider [phone] Reason for Visit * Reason Onset Date Comments Medication Refill 12/23/2023 Encounter Details Date Type Department Care Team (Late st Contact Info) Description 12/23/2023 Refill Family Practice [facility] [address] [place] [address] Fanny Bill MD [address] [facility] [place] [address] BPH with obstruction/lower urinary tract symptoms Allergies No known active allergiesdocumented as of this encounter (statuses as of 12/24/2023) Medications Medication Sig Dispensed Refills Start Date [...] 11/14/2023 Citalopram Hydrobromide 20 MG Oral Tablet (CeleXA)Indications [...] the morning. 90 Capsule 1 12/24/2023 Active Tamsulosin HCl 0.4 MG Oral Capsule (Flomax)Indications :BPH with obstruction/lower urinary tract symptoms Take 1 Capsule by mouth in the morning. 90 Capsule 3 12/30/2022 12/23/19 Discontinu ed(Refill) Omeprazole 20 MG Oral Capsule Delayed Release (PriLOSEC) Take 1 Capsule by mouth in the morning. 90 Capsule 3 12/30/2022 12/23/19 Discontinu ed(Refill) documented as of this encounter (statuses as of 12/24/2023) Active Problems Problem Noted Date Diagnosed Date [...] as of this encounter (statuses as of 12/24/2023) Resolved Problems Problem Noted Date Diagnosed Date [...] as of this encounter (statuses as of 12/24/2023) Immunizations Name Administration Dates Next Due COVID-19 mRNA, LNP-s, No Pre serve, 2-Dose Series ([employer]) 03/20/2021,07/18/2020,06/27/2020 Covid-19, Mrna, Lnp-s, Pf, B ivalent, 30 Mcg, IM, 12 yrs and above (Pfizer) 04/21/2022 Pneumococcal Conjugate Vacci ne, 20-valent ([id number]) 03/16/2022 Pneumococcal Polysaccharide PPV23 (Pneumovax) 03/23/2021 Season [...] encounter Miscellaneous Notes * Telephone Encounter - Denise Cifuentes, [facility] - 12/24/2023 1:08 PM EDTSigned Prescriptions: Disp Refills Tamsulosin HCl 0.4 MG Oral Capsule (Flomax)90 Cap*1 Sig: Take 1 Capsule by mouth in the morning.Authorizing Provider: FANNY BILL User: DENISE CIFUENTES Omeprazole 20 MG Oral Capsule Delayed Rele*90 Cap*1 Sig: Take 1 Capsule by mouth in the morning.Authorizing Provider: FANNY BILL User: DENISE CIFUENTES * Telephone Encounter - Denise Cifuentes RPh - 12/24/2023 1:07 PM EDT Per refill protocol patient needs magnesium and vitamin B-12 labs on file within the past 2 years while using PPIs. Lab work ordered previously. Patient may obtain with next routine labs. ThanksDenise Rph, Pharm D. Clinical Pharmacist [facility] [phone] 12/24/2023,1:08 PM documented in this encounter Plan of Treatment Upcoming Encounters Date Type Department Care Team (Latest Contact Info) Description 01/15/2024 9:01 AM EDT Hospital Encounter [facility], Operating Room [address] [phone] Ranjit Gregory MD [facility] [place] [id number] 01/15/2024 9:01 AM EDT - 01/15/2024 9:23 AM EDT Surgery [place] [facility], Operating Room [address] [phone] Ranjit Gregory MD 400 [facility] [place] [phone] INJECTION TRANSFORAMINAL EPIDURAL LUMBAR OR SACRAL 02/20/2024 9:30 AM EDT Office Visit [facility], [facility] [address] [place] [address] Ranjit Gregory MD [address] [place] [phone] Scheduled Procedures Name Priority Associated Diagnoses Date/Ti me INJECTION TRANSFORAMINAL EPIDURAL LUMBAR OR SACRAL Lumbar radiculopathy 01/15/2024 9:01 AM EDT COLONOSCOPY FLEXIBLE PROXIMAL DIAGNOSTIC Recall History of colon polyps Health Maintenance Due Date Last Done Comments Cologuard 02/09/2000 Fecal Occult Blood Test 02/09/2000 Sigmoidoscopy 02/09/2000 AAA Screening 02/09/2020 Depression Screening 01/05/2022 01/05/2021 Zoster Vaccines (3 of 3) 05/11/2022 03/16/2022, 12/07 COVID-19 Vaccine (5 - 2022- season) 2023 04/21/2022, 03/20/2021, 07/18/2020, Additional history exists GFR 07/31/2023 07/31/2022, 09/08, 03/23/2021, Additional history exists DTaP,Tdap,and Td Vaccines [...] this encounter Medical Devices Implanted Type Area Airplane Charter Clerk Device Identifier Shelf Expiration Date Model / Serial / Lot Mesh 3dmax 4.1x6.2in Lft Lrg - [id number] Implanted:Qty: 1 on 01/22/2016 by Omid Dumont MD at OR [facility] Left: Groin CR BARD : DAVOL 09/03/2020 [id number] / / [id number] documented as of this encounter Visit Diagnoses Diagnosis BPH with obstruction/lower urinary tract symptoms Hypertrophy of prostate with urinary obstruction and other lower urinary tract symptoms (LUTS) Lumbar radiculopathy Thoracic or lumbosacral neuritis or radiculitis, unspecified documented in this encounter Care Teams Account Executive Relationship Specialty Start Date End Date Fanny Bill MD [address] [place] [address] PCP - General Family Medicine 03/23/21 documented as of this encounter
--- OUTSIDE RECORDS SUMMARY | 2024-02-15 20:32 | External Medical Summary | Summary of Care ---
Author Name Unknown Organization [facility] Address [address] [place] [address] Phone [phone] Care Team Providers Care School Office Manager Name Role Phone Dariusz Billingsley MD Primary Care Provider [phone] Reason for Visit * Reason Onset Date Comments Medication Refill 12/03/2023 Encounter Details Date Type Department Care Team (Late st Contact Info) Description 12/03/2023 Refill Family Practice [facility] [address] [facility] [place] [address] Dariusz Billingsley MD [address] [place] [address] Bicuspid aortic valve Allergies No known active allergiesdocumented as of this encounter (statuses as of 12/04/2023) Medications Medication Sig Dispensed Refills Start Date [...] mouth every morning 90 Tablet 12/03/2023 Active documented as of this encounter (statuses as of 12/04/2023) Active Problems Problem Noted Date Diagnosed Date [...] as of this encounter (statuses as of 12/04/2023) Resolved Problems Problem Noted Date Diagnosed Date [...] as of this encounter (statuses as of 12/04/2023) Immunizations Name Administration Dates Next Due COVID-19 mRNA, LNP-s, No Pre serve, 2-Dose Series ([employer]) 03/20/2021,07/18/2020,06/27/2020 Covid-19, Mrna, Lnp-s, Pf, B ivalent, 30 Mcg, IM, 12 yrs and above (Pfizer) 04/21/2022 Pneumococcal Conjugate Vacci ne, 20-valent ([id number]) 03/16/2022 Pneumococcal Polysaccharide PPV23 (Pneumovax) 03/23/2021 Season [...] encounter Miscellaneous Notes * Telephone Encounter - Kerry Molina - 12/04/2023 5:45 AM EDTRefused Prescriptions: Disp Refills Lisinopril 5 MG Oral Tablet (Prinivil) 90 Tab*0 Sig: Take 1 Tablet by mouth in the morning. In the morning..Refused By: Alaina MOLINAon for Refusal: Duplicate R equest documented in this encounter Plan of Treatment Upcoming Encounters Date Type Department Care Team (Latest Contact Info) Description 01/15/2024 9:00 AM EDT Hospital Encounter [facility], Operating Room [facility] [address] [place] [phone] Ranjit Gregory MD [address] [place] [address] 01/15/2024 9:00 AM EDT - 01/15/2024 9:22 AM EDT Surgery [facility], Operating Room [facility] [address] [place] [phone] Ranjit Gregory MD 400 [facility] [place] [address] INJECTION TRANSFORAMINAL EPIDURAL LUMBAR OR SACRAL 02/20/2024 9:30 AM EDT Office Visit Interventional [facility] Center, [facility] 400 [facility] [place] [address] Ranjit Gregory MD [address] [place] [address] Scheduled Procedures Name Priority Associated Diagnoses Date/Ti me INJECTION TRANSFORAMINAL EPIDURAL LUMBAR OR SACRAL Lumbar radiculopathy 01/15/2024 9:00 AM EDT COLONOSCOPY FLEXIBLE PROXIMAL DIAGNOSTIC Recall [...] this encounter Medical Devices Implanted Type Area Conservation Science Officer Device Identifier Shelf Expiration Date Model / Serial / Lot Mesh 3dmax 4.1x6.2in Lft Lrg - [id number] Implanted:Qty: 1 on 01/22/2016 by Omid Dumont MD at OR [facility] Left: Groin CR BARD : DAVOL 09/03/2020 [id number] / / [id number] documented as of this encounter Visit Diagnoses Diagnosis Bicuspid aortic valve Congenital insufficiency of aortic valve Lumbar radiculopathy Thoracic or lumbosacral neuritis or radiculitis, unspecified documented in this encounter Care Teams School Office Manager Relationship Specialty Start Date End Date Dariusz Billingsley MD [address] [place] [address] PCP - General Family Medicine 03/23/21 documented as of this encounter
--- OUTSIDE RECORDS SUMMARY | 2024-02-15 20:32 | External Medical Summary | Summary of Care ---
Author Name Unknown Organization [facility] Address [address] [place] [address] Phone [phone] Care Team Providers Care Staff Design Engineer Name Role Phone Dariusz Billingsley MD Primary Care Provider [phone] Reason for Referral * Precert (Within 10 days (routine)) - Authorized Specialty Diagnoses / Procedures Referred By Contac t Referred To Contact Cardiac Studies Diagnoses Bicuspid aortic valve Moderate aortic stenosis Moderate aortic insufficiency Procedures ECHO, COMPLETE (2D), TRANS-THORACIC La Winters PA-C [address] [place] [address] Referral ID Status Reason Start Date Expiration Date V isits Requested Visits Authorized [id number] Authorized Precert 10/28/2023 12/08/2023 999 999 Reason for Visit * Precert (Within 10 days (routine)) - Authorized Specialty Diagnoses / Procedures Referred By Contac t Referred To Contact Cardiac Studies Diagnoses Bicuspid aortic valve Moderate aortic stenosis Moderate aortic insufficiency Procedures ECHO, COMPLETE (2D), TRANS-THORACIC La Winters PA-C [address] [place] [address] Referral ID Status Reason Start Date Expiration Date V isits Requested Visits Authorized [id number] Authorized Precert 10/28/2023 12/08/2023 999 999 Encounter Details Date Type Department Care Team (Latest Contact Info) Description 10/28/2023 12:56 PM EDT - 10/28/2023 11:59 PM EDT Hospital Encounter Cardiac Studies, [facility] [address] [phone] Discharge Disposition: Home - Self Care Allergies No known active allergiesdocumented as of this encounter (statuses as of 10/29/2023) Medications Medication Sig Dispensed Refills Start Date [...] mouth at bedtime. 90 Tablet 10/11/2022 Active Citalopram Hydrobromide 20 MG Oral [...] as of this encounter (statuses as of 10/29/2023) Active Problems Problem Noted Date Diagnosed Date [...] as of this encounter (statuses as of 10/29/2023) Resolved Problems Problem Noted Date Diagnosed Date [...] as of this encounter (statuses as of 10/29/2023) Immunizations Name Administration Dates Next Due COVID-19 mRNA, LNP-s, No Pre serve, 2-Dose Series (Pfizer) 03/20/2021,07/18/2020,06/27/2020 Covid-19, Mrna, Lnp-s, Pf, B ivalent, 30 Mcg, IM, 12 yrs and above (Pfizer) 04/21/2022 Pneumococcal Conjugate Vacci ne, 20-valent ([id number]) 03/16/2022 Pneumococcal Polysaccharide PPV23 (Pneumovax) 03/23/2021 Season [...] as of this encounter Miscellaneous Notes * Result Encounter Note - Barszczowski, La Ciara, PA-C - 10/28/2023 1:00 PM EDT Echocardiogram with normal pumping function Aortic valve stenosis remains moderate Thickness of left ventricle has increased since last year Please reschedule follow-up to discuss further documented in this encounter Plan of Treatment Upcoming Encounters Date Type Department Care Team (Late st Contact Info) Description 11/14/2023 10:00 AM EDT Office Visit Interventional Pain Center, [facility] [address] [facility] [place] [address] Ranjit Gregory MD 400 [place] [address] Scheduled Procedures Name Priority Associated Diagnoses Date/Ti me COLONOSCOPY FLEXIBLE PROXIMAL DIAGNOSTIC Recall History of colon polyps Health Maintenance Due Date Last Done Comments Cologuard 02/09/2000 Fecal Occult Blood Test 02/09/2000 Sigmoidoscopy 02/09/2000 AAA Screening 02/09/2020 Depression Screening 01/05/2022 01/05/2021 Zoster Vaccines (3 of 3) 05/11/2022 03/16/2022, 12/07 COVID-19 Vaccine ( season) 2023 04/21/2022, 03/20/2021, 07/18/2020, Additional history exists GFR 07/31/2023 07/31/2022, 04/2 10/2021, 03/23/2021, Additional history exists DTaP,Tdap,and Td Vaccines [...] this encounter Medical Devices Implanted Type Area Skein Yarn Drier Device Identifier Shelf Expiration Date Model / Serial / Lot Mesh 3dmax 4.1x6.2in Lft Lrg - [id number] Implanted:Qty: 1 on 01/22/2016 by Omid Dumont MD at OR [facility] Left: Groin CR BARD : DAVOL 09/03/2020 [id number] / / [id number] documented as of this encounter Procedures Procedure Name Priority Date/Time Associated Diagnosis Comments ECHO, COMPLETE (2D), TRANS-THORACIC Routine 10/28/2023 2:01 PM EDT Bicuspid aortic valve Moderate aortic stenosis Moderate aortic insufficiency documented in this encounter Results * ECHO, COMPLETE (2D), TRANS-THORACIC (10/28/2023 2:01 PM EDT) LEFT VENTRICULAR EJECTION FRACTION 54 % [facility] CARDIOLOGY 10/28/2023 1:13 PM EDT La Winters PA-C ECHOCARD IOLOGY [facility] CARDIOLOG[facility] documented in this encounter Visit Diagnoses Diagnosis Bicuspid aortic valve Congenital insufficiency of aortic valve Moderate aortic stenosis Aortic valve disorders Moderate aortic insufficiency Aortic valve disorders documented in this encounter Care Teams Staff Design Engineer Relationship Specialty Start Date End Date Dariusz Billingsley MD [address] [place] [address] PCP - General Family Medicine 03/23/21 documented as of this encounter
--- OUTSIDE RECORDS SUMMARY | 2024-02-15 20:32 | External Medical Summary | Summary of Care ---
Author Name Unknown Organization [facility] Address [address] [place] [address] Phone [phone] Care Team Providers Care Wine Merchant Name Role Phone Dariusz Billingsley MD Primary Care Provider [phone] Reason for Visit * Reason Comments Pain Bilateral Low Back R adiating Into Bilateral Buttocks and Down Right Posterior Lower Extremity To Knee Then Periodically to Front of Right Knee To Foot Follow Up 10/13/23 ILESI L5-S1 Encounter Details Date Type Department Care Team (Late st Contact Info) Description 11/14/2023 10:00 AM EDT Office Visit Interventional Pain Center, [address] [address] Ranjit Gregory MD [address] [place] [phone] Lumbar radicular pain* Allergies No known active allergiesdocumented as of this encounter (statuses as of 11/14/2023) Medications Medication Sig Dispensed Refills Start Date [...] mouth every 6 hours as needed. Active documented as of this encounter (statuses as of 11/14/2023) Active Problems Problem Noted Date Diagnosed Date [...] as of this encounter (statuses as of 11/14/2023) Resolved Problems Problem Noted Date Diagnosed Date [...] as of this encounter (statuses as of 11/14/2023) Immunizations Name Administration Dates Next Due COVID-19 mRNA, LNP-s, No Pre serve, 2-Dose Series ([employer]) 03/20/2021,07/18/2020,06/27/2020 Covid-19, Mrna, Lnp-s, Pf, B ivalent, 30 Mcg, IM, 12 yrs and above ([employer]) 04/21/2022 Pneumococcal Conjugate Vacci ne, 20-valent ([id number]) 03/16/2022 Pneumococcal Polysaccharide PPV23 (Pneumovax) 03/23/2021 Season [...] Sign Reading Time Taken Comments Blood Pressure 140/89 11/14/2023 10:12 AM EDT Pulse 66 11/14/2023 10:12 AM EDT Temperature 36.3 C (97.3 F) 11/14/2023 10:12 AM E DT Respiratory Rate - - Oxygen Saturation 98% 11/14/2023 10:12 AM EDT Inhaled Oxygen Concentration - - Weight - - Height - - Body Mass Index - - documented in this encounter Progress Notes * Ranjit Gregory MD - 11/14/2023 10:16 AM EDT CHIEF COMPLAINT: Luke Briones a 68 year old male is here for follow up after L5-S1 interlaminar epidural steroid injection on 10/13/2023. HPI: He reports a 90% reduction in pain for the first two weeks and then a gradual decrease in the degree of relief. Currently, he reports that his pain has returned to the level it was before the injection. Today, he reports bilateral low back pain radiating into the right buttocks, down the posterior aspect of the right thigh, lateral right calf and periodically wrapping around the front of the right knee across the almazan to the top of the foot. Exacerbating factors include sitting, sleeping on hisright side and prolonged standing. Review of patient's allergies indicates: No Known Allergies MEDICATIONS : Current Outpatient Medications Medication Sig Dispense Refill Aspirin 81 MG Tablet Take 1 Tablet by mouth in the morning. sildenafil (REVATIO) 20 MG Tablet 2 to 4 tablets 1 hour before relations as needed. 40 Tab 0 Citalopram Hydrobromide 20 MG Oral Tablet [...] by mouth in the morning. 90Capsule 3 Lisinopril 5 MG Oral Tablet (Prinivil) Take 1 Tablet by mouth in the morning. 90 Tablet 1 Sildenafil Citrate 100 MG Oral Tablet TAKE 1 TABLET BY MOUTH EVERY DAY NEEDED 10 Tablet 10 Acetaminophen ER 650 MG Oral Tablet Extended Release (Tylenol ER) Take by mouth. Ibuprofen 600 MG Oral Tablet (Motrin) Take 1 Tablet by mouth every 6 hours as needed. amoxicillin (AMOXIL) 500 MG Capsule Take 4 tablets 1 hour prior to dental procedures (Patient not taking: Reported on 11/14/2023) 4 Cap 11 Gabapentin 300 MG Oral Capsule (Neurontin) Take by mouth 1 Capsule in the morning AND 1 Capsule before bedtime. (Patient not taking: Reported on 09/12/2023) 60 Capsule 0 LORazepam 0.5 MG Oral Tablet (Ativan) Take 1 Tablet by mouth at bedtime. (Patient not taking: Reported on 11/14/2023) 90 Tablet 0 Celecoxib 200 MG Oral Capsule (CeleBREX) Take 1 Capsule by mouth in the morning. For pain. (Patientnot taking: Reported on 09/12/2023) 30 Capsule 5 predniSONE 20 MG Oral Tablet (Deltasone) take 4 tablets by mouth daily for 3 days then 3 daily for 3 days ... (REFER TO PRESCRIPTION NOTES). (Patient not taking: Reported on 11/14/2023) No current facility-administered medications for this visit. REVIEW OF SYSTEMS: As per HPI PHYSICAL EXAM: BP 140/89 (BP Site: Left Arm, BP Position: Sitting, BP Cuff Size: Regular) | Pulse 66 | Temp 36.3 C (97.3 F) (Temporal Artery) | SpO2 98% HEENT: Head normocephalic, bilateral tm's clear, perrla,eomi, [...] to palpation of the sacroiliac joints bilaterally Positive straight leg raise on the right ROM lumbar spine is limited. There is [...] lower extremities. ASSESSMENT: 68 year old male who presents for follow up for L5-S1 interlaminar epidural steroid injection with no significant relief. He continues to report lumbar radicular pain PLAN: Right L5-S1 transforaminal epidural steroid injection Continue with current pain medications as tolerated. Remain as active as tolerated. RTC after procedure I spent a total of 20-29 minutes (exact time 24 mins) on the date of service in preparation, delivery, and documentation of the care provided to Luke Briones excluding any time spent in the performance of separately billed services. Ranjit Gregory MD 11/14/2023 documented in this encounter Nursing Notes * Natali Lay RN - 11/14/2023 10:05 AM EDT Return- 1 Month F/U 10/13/23 ILESI L5-S1. Patient had 90% pain relief for 1-2 weeks. At present, painhas returned to it's fullest intensity, especially while sitting and driving per patient. C/O- Bilateral Low Back Radiating Into Bilateral Buttocks and Down Right Posterior Lower Extremity To Knee Then Periodically to Front of Right Knee To Foot Ongoing- Same Pain Aggravating- Sitting, Sleeping on Right Side, Prolonged Standing/Crouching Alleviating- Walking/Moving Around, Cushion/Pillow, Stretches in Swimming Pool Imaging- XR L Spine 09/11/23 ([facility]), MRI L Spine , XR L Spine 08/19/23, MRI C Spine 10/25/20, XRC Spine 08/02/20, EMG 08/04/20 Pain Meds- Gabapentin (Not Taking), Tylenol Arthritis, Advil/Ibuprofen Prednisone 09/11/23 ([facility])- helped per patient Pre-Diabetic, 07/31/23 A1 C= 5.5 Bloodthinner- ASA H/O- Aortic Stenosis and Regurgitation, Bicuspid Aortic Valve, CARLA, BPH, KRISTAN, S/P Bilateral Hip Replacements and Left TKR, Fat Embolism, Left TKR No Back or Neck Surgery Injection- 10/13/23 ILESI L5-S1 Dr. Gregory; 07/19/22, 12/07/20 LINDSAY C7-T1 Dr. Gregory/Dr. Parra; 07/20/[address] Monte; 08/02/[address] Lopez PT- 2023 Cristian Suarez, [facility], 2020 Cristian, Chiropractor Consult- 09/11/23 Ortho Spine [facility] Castillo BENJAMIN/Dr. King; 07/20/[address] Monte; 11/02/[address] Lozano, Referred by Dr. Lozano documented in this encounter Plan of Treatment Upcoming Encounters Date Type Department Care Team (Late st Contact Info) Description 01/15/2024 Hospital Encounter OR [facility], Operating Room [facility] [address] [place] [phone] Ranjit Gregory MD [address] [place] [address] 02/20/2024 9:30 AM EDT Office Visit [facility], [address] [address] Ranjit Gregory MD [address] [place] [address] Scheduled Procedures Name Priority Associated Diagnoses [...] this encounter Medical Devices Implanted Type Area Battery Starter Device Identifier Shelf Expiration Date Model / Serial / Lot Mesh 3dmax 4.1x6.2in Lft Lrg - [id number] Implanted:Qty: 1 on 01/22/2016 by Omid Dumont MD at [facility] Left: Groin CR BARD : DAVOL 09/03/2020 [id number] / / [id number] documented as of this encounter Visit Diagnoses Diagnosis Lumbar radicular pain- Primary Thoracic or lumbosacral neuritis or radiculitis, unspecified documented in this encounter Care Teams Wine Merchant Relationship Specialty Start Date End Date Dariusz Billingsley MD [address] [place] [address] PCP - General Family Medicine 03/23/21 documented as of this encounter"
--- OUTSIDE RECORDS SUMMARY | 2024-02-15 20:32 | External Medical Summary | Summary of Care ---
Author Name Unknown Organization [facility] Address [address] [place] [address] Phone [phone] Care Team Providers Care Serology Technician Name Role Phone Dariusz Billingsley MD Primary Care Provider [phone] [phone] Reason for Visit * Reason Comments Outpatient Testing Encounter Details Date Type Department Care Team (Late st Contact Info) Description 01/01/2024 7:30 AM EDT Laboratory Laboratory [facility] [address] [place] [address] [facility] [address] [place] [address] [employer] Other*[id number]; Encounter for long-term (current) use of medications Allergies No known active allergiesdocumented as of this encounter (statuses as of 01/01/2024) Medications Medication Sig Dispensed Refills Start Date [...] as of this encounter (statuses as of 01/01/2024) Active Problems Problem Noted Date Diagnosed Date [...] as of this encounter (statuses as of 01/01/2024) Resolved Problems Problem Noted Date Diagnosed Date [...] as of this encounter (statuses as of 01/01/2024) Immunizations Name Administration Dates Next Due COVID-19 mRNA, LNP-s, No Pre serve, 2-Dose Series ([employer]) 03/20/2021,07/18/2020,06/27/2020 Covid-19, Mrna, Lnp-s, Pf, B ivalent, 30 Mcg, IM, 12 yrs and above ([employer]et) 04/21/2022 Pneumococcal Conjugate Vacci ne, 20-valent ([id number]) 03/16/2022 Pneumococcal Polysaccharide PPV23 (Pneumovax) 03/23/2021 Season [...] on file documented as of this encounter Plan of Treatment Upcoming Encounters Date Type Department Care Team (Latest Contact Info) Description 01/15/2024 10:18 AM EDT Hospital Encounter [facility] Operating Room [facility] [address] [place] [address] [place] [address] Ranjit Gregory MD [address] [place] [address] [place] [id number] 01/15/2024 10:18 AM EDT - 01/15/2024 10:40 AM EDT Surgery [facility], Operating Room [facility] [address] [place] [address] [place] [address] Ranjit Gregory MD [address] [place] [address] INJECTION TRANSFORAMINAL EPIDURAL LUMBAR OR SACRAL 02/20/2024 9:30 AM EDT Office Visit [facility], [facility] [address] [place] [address] Ranjit Gregory MD [address] [place] [address] Pending Results Name Type Priority Associated Diagnoses Date /Time MYCODE SUBSEQUENT ADULT Lab Routine [employer] Other*[id number] 01/01/2024 7:35 AM EDT COMPREHENSIVE METABOLIC PANEL Lab Routine Encounter for long-term (current) use of medications 01/01/2024 7:35 AM EDT CBC WITH WBC DIFFERENTIAL Lab Routine Encounter for long-term (current) use of medications 01/01/2024 7:35 AM EDT LIPID PANEL WITH DIRECT LDL IF TG IS HIGH Lab Routine Encounter for long-term (current) use of medications 01/01/2024 7:35 AM EDT MYCODE SST1 Lab Routine [employer] Other*[id number] 01/01/2024 7:35 AM EDT MYCODE SST2 Lab Routine [employer] Other*[id number] 01/01/2024 7:35 AM EDT CBC Lab Routine Encounter for long-term (current) use of medications 01/01/2024 7:35 AM EDT DIFFERENTIAL, AUTOMATED Lab Routine Encounter for long-term (current) use of medications 01/01/2024 7:35 AM EDT Scheduled Procedures Name Priority Associated Diagnoses Date/Ti me INJECTION TRANSFORAMINAL EPIDURAL LUMBAR OR SACRAL Lumbar radiculopathy 01/15/2024 10:18 AM EDT COLONOSCOPY FLEXIBLE PROXIMAL DIAGNOSTIC Recall History of colon polyps Health Maintenance Due Date Last Done Comments Cologuard 02/09/2000 Fecal Occult Blood Test 02/09/2000 Sigmoidoscopy 02/09/2000 AAA Screening 02/09/2020 Depression Screening 01/05/2022 01/05/2021 Zoster Vaccines (3 of 3) 05/11/2022 03/16/2022, 12/07 COVID-19 Vaccine (2022-24 season) 2023 04/21/2022, 03/20/2021, 07/18/2020, Additional history [...] this encounter Medical Devices Implanted Type Area Outreach Nurse Device Identifier Shelf Expiration Date Model / Serial / Lot Mesh 3dmax 4.1x6.2in Lft Lrg - [id number] Implanted:Qty: 1 on 01/22/2016 by Omid Dumont MD at OR [facility] Left: Groin CR BARD : DAVOL 09/03/2020 [id number] / / [id number] documented as of this encounter Visit Diagnoses Diagnosis [employer] Other*[id number] Encounter for long-term (current) use of medications Encounter for long-term (current) use of other medications Lumbar radiculopathy Thoracic or lumbosacral neuritis or radiculitis, unspecified documented in this encounter Care Teams Serology Technician Relationship Specialty Start Date End Date Dariusz Billingsley MD [address] [place] [address] PCP - General Family Medicine 03/23/21 documented as of this encounter
--- OUTSIDE RECORDS SUMMARY | 2024-02-15 20:32 | External Medical Summary | Summary of Care ---
Author Name Unknown Organization [facility] Address [address] [place] [address] Phone [phone] Care Team Providers Care Rock Lather Name Role Phone Dariusz Billingsley MD Primary Care Provider [phone] [phone] Reason for Visit * Reason Onset Date Comments Precert Denied 12/29/2023 Please see note Encounter Details Date Type Department Care Team (Late st Contact Info) Description 12/29/2023 Telephone [facility], [address] [address] Ranjit Gregory MD [address] [place] [address] Precert Denied (Please see note) Allergies No known active allergiesdocumented as of this encounter (statuses as of 01/06/2024) Medications Medication Sig Dispensed Refills Start Date [...] as of this encounter (statuses as of 01/06/2024) Active Problems Problem Noted Date Diagnosed Date [...] as of this encounter (statuses as of 01/06/2024) Resolved Problems Problem Noted Date Diagnosed Date [...] as of this encounter (statuses as of 01/06/2024) Immunizations Name Administration Dates Next Due COVID-19 mRNA, LNP-s, No Pre serve, 2-Dose Series ([employer]) 03/20/2021,07/18/2020,06/27/2020 Covid-19, Mrna, Lnp-s, Pf, B ivalent, 30 Mcg, IM, 12 yrs and above (Pfizer) 04/21/2022 Pneumococcal Conjugate Vacci ne, 20-valent ([id number]) 03/16/2022 Pneumococcal Polysaccharide PPV23 (Pneumovax) 03/23/2021 Season [...] If it can be completed by a IT SECURITY SPECIALIST,please schedule with Hema. There is often a limited time period for which a peer to peer can be completed and I was on vacation when this was sent. Thanks, Ranjit Gregory MD Interventional Pain Physician [facility] Anesthesiology [facility] * Telephone Encounter - Elyse Dumont OSA - 12/29/2023 4:15 PM EDT This is to inform you that the following authorization request for Luke Briones has been denied. DOS- 01/15/24 Procedure- 14244 Insurance- [facility] In/Out of Network- [place] Reason for Denial- Unable to authorize at this time with information provided. Peer to Peer can be performed by calling [phone] with tracking number [id number] or [id number]. Thank You, KRISTAN Govea 12/29/2023, 4:16 PM documented in this encounter Plan of Treatment Upcoming Encounters Date Type Department Care Team (Late st Contact Info) Description 02/20/2024 9:30 AM EDT Office Visit [facility], [address] [place] [address] Ranjit Gregory MD [address] [place] [address] [place] [address] Scheduled Procedures Name Priority Associated Diagnoses Date/Ti me INJECTION TRANSFORAMINAL EPI DURAL LUMBAR OR SACRAL Lumbar radiculopathy COLONOSCOPY FLEXIBLE PROXIMAL DIAGNOSTIC Recall History of colon polyps Health Maintenance Due Date Last Done Comments Cologuard 02/09/2000 Fecal Occult Blood Test 02/09/2000 Sigmoidoscopy 02/09/2000 AAA Screening 02/09/2020 Depression Screening 01/05/2022 01/05/2021 Zoster Vaccines (3 of 3) 05/11/2022 03/16/2022, 12/07 COVID-19 Vaccine ( - 2022- season) 2023 04/21/2022, 03/20/2021, 07/18/2020, [...] 12/31/2028 01/01/2024, 08/07, 03/07/2020, Additional history exists Hepatitis C Screening Completed 12/06/1998 RETIRED - COLONOSCOPY-EVERY 5 YRS AGES 18-100 [...] this encounter Medical Devices Implanted Type Area Printing Table Hand Device Identifier Shelf Expiration Date Model / Serial / Lot Mesh 3dmax 4.1x6.2in Lft Lrg - [id number] Implanted:Qty: 1 on 01/22/2016 by Omid Dumont MD at OR [facility] Left: Groin CR BARD : DAVOL 09/03/2020 [id number] / / [id number] documented as of this encounter Care Teams Rock Lather Relationship Specialty Start Date End Date Dariusz Billingsley MD [address] [place] [address] PCP - General Family Medicine 03/23/21 documented as of this encounter
--- OUTSIDE RECORDS SUMMARY | 2024-02-15 20:32 | External Medical Summary ---
Author Name Unknown Address Unknown Organization K01:[facility] - [address] [place] [address] Laboratory Report Ordering Provider Test Date Status KAILEE VILLA 01/01/2024 07:35:08 Final Observation Date Value Abnormality Reference (Units ) Status MYCODE SPECIMEN-SST 01/01/2024 07:35:08 Freezing of extracted DNA, whole blood and/or serum. Final Performing Location [facility] - [address] [place] [address]
--- OUTSIDE RECORDS SUMMARY | 2024-02-15 20:32 | External Medical Summary | Summary of Care ---
Author Name Unknown Organization [facility] Address [address] [place] [address] Phone [phone] Care Team Providers Care Nurse Companion Name Role Phone Dariusz Billingsley MD Primary Care Provider [phone] [phone] Reason for Visit * Reason Comments eRx-Medication Refill Encounter Details Date Type Department Care Team (Late st Contact Info) Description 12/23/2023 Refill Family Practice [facility] [address] [facility] [place] [address] Dariusz Billingsley MD [address] [facility] [place] [address] BPH with obstruction/lower urinary tract symptoms Allergies [...] the morning. 90 Capsule 3 12/30/2022 12/23/19 24 Discontinu ed(Refill) Omeprazole 20 MG Oral Capsule Delayed Release (PriLOSEC) Take 1 Capsule by mouth in the morning. 90 Capsule 3 12/30/2022 12/23/19 24 Discontinu ed(Refill) documented as of this [...] mRNA, LNP-s, No Pre serve, 2-Dose Series ([employer]) 03/20/2021,07/18/2020,06/27/2020 Covid-19, Mrna, Lnp-s, Pf, B ivalent, 30 Mcg, IM, 12 yrs and above ([employer]) 04/21/2022 Pneumococcal Conjugate Vacci ne, 20-valent ([id number]) 03/16/2022 Pneumococcal Polysaccharide PPV23 (Pneumovax) 03/23/2021 Season [...] encounter Miscellaneous Notes * Telephone Encounter - Elver Cifuentes, [facility] - 12/24/2023 1:07 PM EDTRefused Prescriptions: Disp Refills Omeprazole 20 MG Oral Capsule Delayed Rele*90 Cap*3 Sig: take 1capsule by mouth every morningRefused By: Marian CIFUENTES for Refusal: Duplicate Request Tamsulosin HCl 0.4 MG Oral Capsule (Flomax)90 Cap*3 Sig: take 1 capsule by mouth every morningRefusedBy: Marian CIFUENTES for Refusal: Duplicate Request documented in this encounter Plan of Treatment Upcoming Encounters Date Type Department Care Team (Latest Contact Info) Description 01/15/2024 9:01 AM EDT Hospital Encounter OR [facility], Operating Room [facility] [address] [place] [address] Ranjit Gregory MD [address] [place] [address] 01/15/2024 9:01 AM EDT - 01/15/2024 9:23 AM EDT Surgery OR [facility], Operating Room [address] [id number] Ranjit Gregory MD [address] [place] [address] INJECTION TRANSFORAMINAL EPIDURAL LUMBAR OR SACRAL 02/20/2024 9:30 AM EDT Office Visit [facility], [address] [address] Ranjit Gregory MD [address] [place] [address] Scheduled Procedures Name Priority Associated Diagnoses Date/Ti me INJECTION TRANSFORAMINAL EPIDURAL LUMBAR OR SACRAL Lumbar radiculopathy 01/15/2024 9:01 AM EDT COLONOSCOPY FLEXIBLE PROXIMAL DIAGNOSTIC Recall History of colon polyps Health Maintenance Due Date Last Done Comments Cologuard 02/09/2000 Fecal Occult Blood Test 02/09/2000 Sigmoidoscopy 02/09/2000 AAA Screening 02/09/2020 Depression Screening 01/05/2022 01/05/2021 Zoster Vaccines (3 of 3) 05/11/2022 03/16/2022, 12/07 COVID-19 Vaccine (24 season) 2023 04/21/2022, 03/20/2021, 07/18/2020, Additional history [...] this encounter Medical Devices Implanted Type Area Sales Branch Manager Device Identifier Shelf Expiration Date Model / Serial / Lot Mesh 3dmax 4.1x6.2in Lft Lrg - [id number] Implanted:Qty: 1 on 01/22/2016 by Omid Dumont MD at OR [facility] Left: Groin CR BARD : DAVOL 09/03/2020 [id number] / / [id number] documented as of this encounter Visit Diagnoses Diagnosis BPH with obstruction/lower urinary tract symptoms Hypertrophy of prostate with urinary obstruction and other lower urinary tract symptoms (LUTS) Lumbar radiculopathy Thoracic or lumbosacral neuritis or radiculitis, unspecified documented in this encounter Care Teams Nurse Companion Relationship Specialty Start Date End Date Dariusz Billingsley MD [address] [place] [address] PCP - General Family Medicine 03/23/21 documented as of this encounter
--- OUTSIDE RECORDS SUMMARY | 2024-02-15 20:32 | External Medical Summary | Summary of Care ---
Author Name Unknown Organization [facility] Address [address] [place] [address] Phone [phone] Care Team Providers Care Basket Maker Name Role Phone Dariusz Billingsley MD Primary Care Provider [phone] [phone] Reason for Visit * Reason Onset Date Comments Films 09/11/2023 Encounter Details Date Type Department Care Team (Late st Contact Info) Description 09/11/2023 Telephone Radiology Film File [address] [place] [address] Maggi Garnett, [address] [place] [address] Films Allergies No known active allergiesdocumented as of this encounter (statuses as of 09/11/2023) Medications Medication Sig Dispensed Refills Start Date [...] 11/04/2019 Active Gabapentin 300 MG Oral Capsule (Neurontin)Indication s:Cervical radicular pain Take by mouth 1 Capsule in the morning AND 1 Capsule before bedtime. 60 Capsule 0 01/31/2022 Active LORazepam 0.5 MG Oral Tablet (Ativan)Indications:R LS (restless legs syndrome) Take 1 Tablet by mouth at bedtime. 90 Tablet 0 10/11/2022 Active Citalopram Hydrobromide 20 MG Oral Tablet (CeleXA)Indications:G AD (generalized anxiety disorder) Take 1 Tablet by mouth in the morning. 90 Tablet 1 11/21/2022 Active Rosuvastatin Calcium 10 MG Oral Tablet (Crestor) Take 1 Tablet by mouth in the morning. 90 Tablet 3 12/30/2022 Active Tamsulosin HCl 0.4 MG Oral Capsule (Flomax)Indications:B PH with obstruction/lower urinary tract symptoms Take 1 Capsule by mouth in the morning. 90 Capsule 3 12/30/2022 Active Omeprazole 20 MG Oral Capsule Delayed Release (PriLOSEC) Take 1 Capsule by mouth in the morning. 90 Capsule 3 12/30/2022 Active Celecoxib 200 MG Oral Capsule (CeleBREX)Indications :Generalized osteoarthritis Take 1 Capsule by mouth in the morning. For pain. 30 Capsule 5 04/24/2023 Active Lisinopril 5 MG Oral Tablet (Prinivil)Indications :Bicuspid aortic valve Take 1 Tablet by mouth in the morning. 90 Tablet 1 05/28/2023 Active Sildenafil Citrate 100 MG Oral Tablet TAKE 1 TABLET BY MOUTH EVERY DAY NEEDED 10 Tablet 10 09/10/2023 Active documented as of this encounter (statuses as of 09/11/2023) Active Problems Problem Noted Date Diagnosed Date [...] as of this encounter (statuses as of 09/11/2023) Resolved Problems Problem Noted Date Diagnosed Date [...] as of this encounter (statuses as of 09/11/2023) Immunizations Name Administration Dates Next Due COVID-19 mRNA, LNP-s, No Pre serve, 2-Dose Series ([employer]) 03/20/2021,07/18/2020,06/27/2020 Covid-19, Mrna, Lnp-s, Pf, B ivalent, 30 Mcg, IM, 12 yrs and above ([employer]) 04/21/2022 Pneumococcal Conjugate Vacci ne, 20-valent ([id number]) 03/16/2022 Pneumococcal Polysaccharide PPV23 (Pneumovax) 03/23/2021 Season [...] encounter Miscellaneous Notes * Telephone Encounter - Silvia Amado OSA - 09/11/2023 1:17 PM EDT [facility] requesting 08/19/23 Lspine Xray and 08/22/23 Lspine MR images be pushedto their system. [employer] Authorization to Release on file. Images pushed to [facility] Life Image account. Report(s) faxed to [phone] through [employer]. documented in this encounter Plan of Treatment Upcoming Encounters Date Type Department Care Team (Late st Contact Info) Description 09/12/2023 10:00 AM EDT Office Visit [facility], [address] [place] [address] Ranjit Gregory MD [address] [place] [address] 10/28/2023 1:00 PM EDT Appointment Cardiac Studies, [address] [place] [address] Scheduled Procedures Name Priority Associated Diagnoses Date/Ti [...] this encounter Medical Devices Implanted Type Area Overhauler Device Identifier Shelf Expiration Date Model / Serial / Lot Mesh 3dmax 4.1x6.2in Lft Lrg - [id number] Implanted:Qty: 1 on 01/22/2016 by Omid Dumont MD at OR [facility] Left: Groin CR BARD : DAVOL 09/03/2020 [id number] / / [id number] documented as of this encounter Care Teams Basket Maker Relationship Specialty Start Date End Date Dariusz Billingsley MD [address] [place] [address] PCP - General Family Medicine 03/23/21 documented as of this encounter
--- OUTSIDE RECORDS SUMMARY | 2024-02-15 20:32 | External Medical Summary ---
Author Name Unknown Address Unknown Organization K01:[facility] - [address] [place] [address] Laboratory Report Ordering Provider Test Date Status KAILEE VILLA 01/01/2024 07:35:08 Final Observation Date Value Abnormality Reference (Units ) Status MYCODE SPECIMEN-SST 01/01/2024 07:35:08 Freezing of extracted DNA, whole blood and/or serum. Final Performing Location [facility] - [address] [place] [address]
--- OUTSIDE RECORDS SUMMARY | 2024-02-15 20:32 | External Medical Summary | Summary of Care ---
Author Name Unknown Organization [facility] Address [address] [place] [address] Phone [phone] Care Team Providers Care Nanny Caregiver Name Role Phone Fanny Bill MD Primary Care Provider [phone] [phone] Reason for Visit * Reason Comments eRx-Medication Refill Encounter Details Date Type Department Care Team (Late st Contact Info) Description 12/02/2023 Refill Family Practice [facility] [address] [facility] [place] [address] Fanny Bill MD [address] [place] [address] Encounter for long-term (current) use of medications*; Bicuspid aortic valve Allergies No known active allergiesdocumented as of this encounter (statuses as of 12/03/2023) Medications Medication Sig Dispensed Refills Start Date End Date Status Aspirin 81 MG Tablet Take 1 Tablet by mouth in the morning. Active amoxicillin (AMOXIL) 500 MG Capsule Take 4 tablets 1 hour prior to dental procedures 4 Cap 11 8 Active Additional Information Patient not taking.Reported on 11/14/2023 sildenafil (REVATIO) 20 MG Tablet 2 to 4 tablets 1 hour before relations as needed. 40 Tab 0 Active Gabapentin 300 MG Oral Capsule (Neurontin)Indicat ions:Cervical radicular pain Take by mouth 1 Capsule in the morning AND 1 Capsule before bedtime. 60 Capsule 2 Active Additional Information Patient not taking.Reported on 09/12/2023 LORazepam 0.5 MG Oral Tablet (Ativan)Indication s:RLS (restless legs syndrome) Take 1 Tablet by mouth at bedtime. 90 Tablet 3 Active Additional Information Patient not taking.Reported on 11/14/2023 Citalopram Hydrobromide 20 MG Oral Tablet (CeleXA)Indication s:CARLA (generalized anxiety disorder) Take 1 Tablet by mouth in the morning. 90 Tablet 1 3 Active Rosuvastatin Calcium 10 MG Oral Tablet (Crestor) Take 1 Tablet by mouth in the morning. 90 Tablet 3 3 Active Tamsulosin HCl 0.4 MG Oral Capsule (Flomax)Indication s:BPH with obstruction/lower urinary tract symptoms Take 1 Capsule by mouth in the morning. 90 Capsule 3 3 Active Omeprazole 20 MG Oral Capsule Delayed Release (PriLOSEC) Take 1 Capsule by mouth in the morning. 90 Capsule 3 3 Active Celecoxib 200 MG Oral Capsule (CeleBREX)Indicati ons:Generalized osteoarthritis Take 1 Capsule by mouth in the morning. For pain. 30 Capsule 5 3 Active Additional Information Patient not taking.Reported on 09/12/2023 Sildenafil Citrate 100 MG Oral Tablet TAKE 1 TABLET BY MOUTH EVERY DAY NEEDED 10 Tablet 10 4 Active Acetaminophen ER 650 MG Oral Tablet Extended Release (Tylenol ER) Take by mouth. Active predniSONE 20 MG Oral Tablet (Deltasone) take 4 tablets by mouth daily for 3 days then 3 daily for 3 days ... (REFER TO PRESCRIPTION NOTES). 4 Active Ibuprofen 600 MG Oral Tablet (Motrin) Take 1 Tablet by mouth every 6 hours as needed. Active Lisinopril 5 MG Oral Tablet (Prinivil)Indicati ons:Bicuspid aortic valve take 1 tablet by mouth every morning 90 Tablet 4 Active Lisinopril 5 MG Oral Tablet (Prinivil)Indicati ons:Bicuspid aortic valve Take 1 Tablet by mouth in the morning. 90 Tablet 1 3 12/03/19 24 Discontinued documented as of this encounter (statuses as of 12/03/2023) Active Problems Problem Noted Date Diagnosed Date [...] as of this encounter (statuses as of 12/03/2023) Resolved Problems Problem Noted Date Diagnosed Date [...] as of this encounter (statuses as of 12/03/2023) Immunizations Name Administration Dates Next Due COVID-19 mRNA, LNP-s, No Pre serve, 2-Dose Series ([employer]) 03/20/2021,07/18/2020,06/27/2020 Covid-19, Mrna, Lnp-s, Pf, B ivalent, 30 Mcg, IM, 12 yrs and above ([employer]) 04/21/2022 Pneumococcal Conjugate Vacci ne, 20-valent ([id number]) 03/16/2022 Pneumococcal Polysaccharide PPV23 (Pneumovax) 03/23/2021 Season [...] Telephone Encounter - Fanny Bill MD - 12/03/2023 12:44 PM EDTSigned Prescriptions: Disp Refills Lisinopril 5 MG Oral Tablet (Prinivil) 90 Tab*0 Sig: take 1 tablet by mouth every morning Authorizing Provider: FANNY BILL * Telephone Encounter - Arley Garcias starch factory laborer - 12/03/2023 12:29 PM EDTPending Prescriptions: Disp Refills Lisinopril 5 MG Oral Tablet (Prinivil) 90 Tab*0 Sig: take 1 tablet by mouth every morning * Telephone Encounter - Arley Garcias starch factory laborer - 12/03/2023 12:29 PM EDT Received message from [facility] regarding patient needing an appointment and labs. Call Placed, Left message on [employer] advising of required labs and to call back for an appointment. Thank you, Arley Garcias Victim Advocate [facility] 12/03/2023, 12:29 PM * Telephone Encounter - Cady Lemons [facility] - 12/03/2023 11:25 AM EDT Pending Prescriptions: Disp Refills Lisinopril 5 MG Oral Tablet (Prinivil) 90 Tab*0 Sig: take 1 tablet by mouth every morning * Telephone Encounter - Cady Lemons [facility] - 12/03/2023 11:25 AM EDT Unable to authorize medication refills for pended medication(s) at this time. Part of the protocol criteria used for refill authorization was not satisfied. Per refill protocol patient should have CMP on file within past year. Reviewed AMP report, Care Gaps/Health Maintenance, medications list, and for any routine labs typically ordered for this patient.Lab orders placed. Please contact patient to schedule office visit with PRIMARY CARE and advise of labs ordered for blood draw.. Recommend patient to fast if able for labs. Patient may still have water and regular medications. Advise to obtain labs before requesting the next refill. Last Visit: 10/11/2022 (in office), 08/19/2023 (telemedicine) Next Visit: Visit date not found After contacting patient, please forward request to Fanny Bill MD. Thank you, Cady Lemons [facility] Clinical Pharmacist [facility] ([facility]) 12/03/23 11:25 AM [phone] * Telephone Encounter - Cady Lemons [facility] - 12/03/2023 11:21 AM EDT Did you pend patient's preferred pharmacy and medication before forwarding?yes Pharmacy: [id number] [facility] Pending Prescriptions: Disp Refills Lisinopril 5 MG Oral Tablet (Prinivil) [P*90 Tab*0 Sig: take 1 tablet by mouth every morning Last Visit: 10/11/2022 (in office), 08/19/2023 (telemedicine) Next Visit: Visit date not found If no future appointments scheduled, and last appointment is greater than a year ago, please schedule patient for a follow-up appointment Last date the medication was ordered: 05/28/2023 Is this request for a controlled substance?No Urine Drug Screen:No results found for this or any previous visit. Patient Phone Numbers Labs: Lab Results Component Value Date/Time CREAT 0.8 07/31/2022 02:49 PM CREAT 0.8 03/07/2020 12:00 AM CREAT 1.0 01/01/2016 03:28 PM POTASSIUM 4.6 07/31/2022 02:49 PM POTASSIUM 4.3 03/07/2020 12:00 AM POTASSIUM 4.5 01/01/2016 03:28 PM TSH 1.43 07/31/2022 02:49 PM LDLCALC 54 08/16/2022 07:54 AM LDLCALC 48 03/07/2020 12:00 AM ALT 31 07/31/2022 02:49 PM ALT 29 03/07/2020 12:00 AM ALT 32 01/08/1999 11:42 AM HGBA1C 5.5 07/31/2022 02:49 PM documented in this encounter Plan of Treatment Upcoming Encounters Date Type Department Care Team (Latest Contact Info) Description 01/15/2024 9:00 AM EDT Hospital Encounter [facility], Operating Room [facility] [address] [place] [phone] Ranjit Gregory MD [address] [place] [address] [place] [address] 01/15/2024 9:00 AM EDT - 01/15/2024 9:22 AM EDT Surgery [facility], Operating Room [facility] [address] [place] [address] [place] [phone] Ranjit Gregory MD [address] [place], [place] [address] [address] INJECTION TRANSFORAMINAL EPIDURAL LUMBAR OR SACRAL 02/20/2024 9:30 AM EDT Office Visit [facility], [address] [place] [address] Ranjit Gregory MD [address] [facility] [place] [address] Scheduled Orders Name Type Priority Associated Diagnoses Orde r Schedule COMPREHENSIVE METABOLIC PANEL Lab Routine Encounter for long-term (current) use of medications Expected: 12/17/2023 (Approximate), Expires: 12/03/2024 CBC WITH WBC DIFFERENTIAL Lab Routine Encounter for long-term (current) use of medications Expected: 12/17/2023 (Approximate), Expires: 12/02/2024 LIPID PANEL WITH DIRECT LDL IF TG IS HIGH Lab Routine Encounter for long-term (current) use of medications Expected: 12/17/2023 (Approximate), Expires: 12/03/2024 Scheduled Procedures Name Priority Associated Diagnoses Date/Ti [...] this encounter Medical Devices Implanted Type Area Balance Bridge Inspector Device Identifier Shelf Expiration Date Model / Serial / Lot Mesh 3dmax 4.1x6.2in Lft Lrg - [id number] Implanted:Qty: 1 on 01/22/2016 by Omid Dumont MD at OR [facility] Left: Groin CR BARD : DAVOL 09/03/2020 [id number] / / [id number] documented as of this encounter Visit Diagnoses Diagnosis Encounter for long-term (current) use of medications- Primary Encounter for long-term (current) use of other medications Bicuspid aortic valve Congenital insufficiency of aortic valve Lumbar radiculopathy Thoracic or lumbosacral neuritis or radiculitis, unspecified documented in this encounter Care Teams Nanny Caregiver Relationship Specialty Start Date End Date Fanny Bill MD [address] [place] [address] PCP - General Family Medicine 03/23/21 documented as of this encounter
--- OUTSIDE RECORDS SUMMARY | 2024-02-15 20:32 | External Medical Summary ---
Author Name Unknown Address Unknown Organization K01:[facility] - [address] [facility] [place] [address] Laboratory Report Ordering Provider Test Date Status VIBHA DENNISLAURA 01/01/2024 07:35:08 Final Observation Date Value Abnormality Reference (Units ) Status SYNC LEUKOCYTES IN BLOOD BY AUTOMATED COUNT 01/01/2024 07:35:08 6.94 4.00-10.80 (K/uL) Final Segs 01/01/2024 07:35:08 52.2 40.0-75.0 (%) Final Lymphs % 01/01/2024 07:35:08 29.7 18.0-42.0 (%) Final Monos 01/01/2024 07:35:08 11.5 Above high normal 1.0-11.0 (%) Final Eosinophils 01/01/2024 07:35:08 5.3 0.0-6.0 (%) Final Basos 01/01/2024 07:35:08 0.9 0.0-2.0 (%) Final Immature Granulocyte, Percent 01/01/2024 07:35:08 0.4 0.0-2.0 (%) Final Absolute Segs 01/01/2024 07:35:08 3.62 1.80-7.70 (K/uL) Final Lymphs, absolute 01/01/2024 07:35:08 2.06 1.00-4.80 (K/ul) Final Monos, Abs 01/01/2024 07:35:08 0.80 0.00-1.10 (K/uL) Final Eos, Abs 01/01/2024 07:35:08 0.37 0.00-0.70 (K/uL) Final Basos, Abs 01/01/2024 07:35:08 0.06 0.00-0.20 (K/uL) Final Immature Granulocytes, Number 01/01/2024 07:35:08 0.03 0.00-0.20 (K/uL) Final Performing Location [facility] - [address] [facility] [address]
--- OUTSIDE RECORDS SUMMARY | 2024-02-15 20:32 | External Medical Summary | Summary of Care ---
Author Name Unknown Organization [facility] Address [address] [facility] [place] [address] Phone [phone] Care Team Providers Care Hotel Front Desk Clerk Name Role Phone Dariusz Billingsley MD Primary Care Provider [phone] Encounter Details Date Type Department Care Team (Late st Contact Info) Description 12/05/2023 Orders Only PATIENT PORTAL DO NOT DELETE THIS DEPT USED BY [place] [id number] Allergies No known active allergiesdocumented as of this encounter (statuses as of 12/05/2023) Medications Medication Sig Dispensed Refills Start Date [...] as of this encounter (statuses as of 12/05/2023) Active Problems Problem Noted Date Diagnosed Date [...] as of this encounter (statuses as of 12/05/2023) Resolved Problems Problem Noted Date Diagnosed Date [...] as of this encounter (statuses as of 12/05/2023) Immunizations Name Administration Dates Next Due COVID-19 mRNA, LNP-s, No Pre serve, 2-Dose Series ([employer]) 03/20/2021,07/18/2020,06/27/2020 Covid-19, Mrna, Lnp-s, Pf, B ivalent, 30 Mcg, IM, 12 yrs and above ([employer]izer) 04/21/2022 Pneumococcal Conjugate Vacci ne, 20-valent ([id number]) 03/16/2022 Pneumococcal Polysaccharide PPV23 (Pneumovax) 03/23/2021 Season [...] Encounter OR [facility], Operating Room [facility] [address] [place] [phone] Ranjit Gregory MD [address] [place] [address] 01/15/2024 9:00 AM EDT - 01/15/2024 9:22 AM EDT Surgery OR [facility], Operating Room OS [address] [place] [phone] Ranjit Gregory MD [address] [facility] [place] [address] INJECTION TRANSFORAMINAL EPIDURAL LUMBAR OR SACRAL 02/20/2024 9:30 AM EDT Office Visit [facility], [facility] [address] [address] Ranjit Gregory MD [address] [place] [address] Scheduled Procedures Name Priority Associated Diagnoses Date/Ti [...] this encounter Medical Devices Implanted Type Area Municipal Bond Trader Device Identifier Shelf Expiration Date Model / Serial / Lot Mesh 3dmax 4.1x6.2in Lft Lrg - [id number] Implanted:Qty: 1 on 01/22/2016 by Omid Dumont MD at OR [facility] Left: Groin CR BARD : DAVOL 09/03/2020 [id number] / / [id number] documented as of this encounter Care Teams Hotel Front Desk Clerk Relationship Specialty Start Date End Date Dariusz Billingsley MD [address] [place] [address] PCP - General Family Medicine 03/23/21 documented as of this encounter
--- OUTSIDE RECORDS SUMMARY | 2024-02-15 20:33 | External Medical Summary | Summary of Care ---
Author Name Unknown Organization [facility] Address [address] [place] [address] Phone [phone] Care Team Providers Care Injection Mold Technician Name Role Phone Dariusz Billingsley MD Primary Care Provider [phone] Reason for Visit * Reason Onset Date Comments Appointment 08/19/2023 MRI/pain mgmt Encounter Details Date Type Department Care Team (Late st Contact Info) Description 08/19/2023 Telephone Family Practice [facility] [address] [facility] [id number] Maggi Garnett DO [address] [address] Appointment (MRI/pain mgmt) Allergies No known active allergiesdocumented as of this encounter (statuses as of 08/21/2023) Medications Medication Sig Dispensed Refills Start Date [...] before bedtime. 60 Capsule 0 01/31/2022 Active Sildenafil Citrate 100 MG Oral Tablet TAKE 1 TABLET BY MOUTH EVERY DAY NEEDED 10 Tablet 10 07/29/2022 Active LORazepam 0.5 MG Oral Tablet (Ativan)Indications:R [...] the morning. 90 Tablet 1 05/28/2023 Active documented as of this encounter (statuses as of 08/21/2023) Active Problems Problem Noted Date Diagnosed Date [...] as of this encounter (statuses as of 08/21/2023) Resolved Problems Problem Noted Date Diagnosed Date [...] as of this encounter (statuses as of 08/21/2023) Immunizations Name Administration Dates Next Due COVID-19 mRNA, LNP-s, No Pre serve, 2-Dose Series ([employer]) 03/20/2021,07/18/2020,06/27/2020 Covid-19, Mrna, Lnp-s, Pf, B ivalent, 30 Mcg, IM, 12 yrs and above (Pfizer) 04/21/2022 Pneumococcal Conjugate Vacci ne, 20-valent ([id number]) 03/16/2022 Pneumococcal Polysaccharide PPV23 (Pneumovax) 03/23/2021 Season [...] encounter Miscellaneous Notes * Telephone Encounter - Brett Frederick OSA - 08/21/2023 10:36 AM EDT Called and spoke to pt, scheduled referrals * Telephone Encounter - Chelsi Luna OSA - 08/19/2023 12:54 PM EDT LM for pt to call back to schedule MRI and pain mgmt documented in this encounter Plan of Treatment Upcoming Encounters Date Type Department Care Team (Late st Contact Info) Description 08/22/2023 11:15 AM EDT Imaging Radiology [facility] [address] [facility] [place] [address] 09/12/2023 10:00 AM EDT Office Visit Inter[facility], [facility] [address] [place] [address] Ranjit Gregory MD [address] [place] [address] Scheduled Procedures Name Priority Associated Diagnoses Date/Ti me COLONOSCOPY FLEXIBLE PROXIMAL DIAGNOSTIC Recall History of colon polyps Health Maintenance Due Date Last Done Comments AAA Screening 02/09/2020 Depression Screening 01/05/2022 01/05/2021 Zoster Vaccines (3 of 3) 05/11/2022 03/16/2022, 12/07 COVID-19 Vaccine ( season) 2023 04/21/2022, 03/20/2021, 07/18/2020, Additional history exists Influenza Vaccine (FLU shot) (#1) 2023 03/16/2022, 03/23/2021, 05/03/2019, Additional history exists GFR 07/31/2023 07/31/2022, 09/08, 03/23/2021, Additional history exists DTaP,Tdap,and Td Vaccines (2 - Td or Tdap) 01/22/2024 01/21/2014 Albumin/Creatinine Ratio 07/31/2025 07/31/2022 Diabetes Screening 07/31/2025 [...] this encounter Medical Devices Implanted Type Area Station Cook Device Identifier Shelf Expiration Date Model / Serial / Lot Mesh 3dmax 4.1x6.2in Lft Lrg - [id number] Implanted:Qty: 1 on 01/22/2016 by Omid Dumont MD at OR [facility] Left: Berenice GIBSON BARD : RYAN 09/03/2020 [id number] / / [id number] documented as of this encounter Care Teams Injection Mold Technician Relationship Specialty Start Date End Date Dariusz Billingsley MD [address] [place] [address] PCP - General Family Medicine 03/23/21 documented as of this encounter
--- OUTSIDE RECORDS SUMMARY | 2024-02-15 20:33 | External Medical Summary | Summary of Care ---
Author Name Unknown Organization [facility] Address [address] [place] [address] Phone [phone] Care Team Providers Care Criminal Intelligence Specialist Name Role Phone Dariusz Billingsley MD Primary Care Provider [phone] Reason for Visit * Reason Onset Date Comments Films 08/27/2023 Encounter Details Date Type Department Care Team (Late st Contact Info) Description 08/27/2023 Telephone Radiology Film File [address] [place] [address] Maggi Garnett, [address] [place] [address] Films Allergies No known active allergiesdocumented as of this encounter (statuses as of 08/27/2023) Medications Medication Sig Dispensed Refills Start Date [...] as of this encounter (statuses as of 08/27/2023) Active Problems Problem Noted Date Diagnosed Date [...] as of this encounter (statuses as of 08/27/2023) Resolved Problems Problem Noted Date Diagnosed Date [...] as of this encounter (statuses as of 08/27/2023) Immunizations Name Administration Dates Next Due COVID-19 mRNA, LNP-s, No Pre serve, 2-Dose Series ([employer]) 03/20/2021,07/18/2020,06/27/2020 Covid-19, Mrna, Lnp-s, Pf, B ivalent, 30 Mcg, IM, 12 yrs and above ([employer]) 04/21/2022 Pneumococcal Conjugate Vacci ne, 20-valent ([id number]) 03/16/2022 Pneumococcal Polysaccharide PPV23 (Pneumovax) 03/23/2021 Season [...] encounter Miscellaneous Notes * Telephone Encounter - Delfina Gustafson OSA - 08/27/2023 8:[address] [facility] requesting 08-19-23 images be pushed to their system. [place] Authorization to Release on file. Images pushed to [facility] external connection through PACs Report(s) faxed to [phone]. Successful fax confirmation received. documented in this encounter Plan of Treatment Upcoming Encounters Date Type Department Care Team (Late st Contact Info) Description 09/12/2023 10:00 AM EDT Office Visit [facility], [address] [address] Ranjit Gregory MD [address] [place] [id number] Scheduled Procedures Name Priority Associated Diagnoses Date/Ti [...] this encounter Medical Devices Implanted Type Area Fire Prevention Engineer Device Identifier Shelf Expiration Date Model / Serial / Lot Mesh 3dmax 4.1x6.2in Lft Lrg - [id number] Implanted:Qty: 1 on 01/22/2016 by Omid Dumont MD at OR [facility] Left: Groin CR BARD : DAVOL 09/03/2020 [id number] / / [id number] documented as of this encounter Care Teams Criminal Intelligence Specialist Relationship Specialty Start Date End Date Dariusz Billingsley MD [address] [place] [address] PCP - General Family Medicine 03/23/21 documented as of this encounter
--- OUTSIDE RECORDS SUMMARY | 2024-02-15 20:33 | External Medical Summary | Summary of Care ---
Author Name Unknown Organization [facility] Address [address] [place] [address] Phone [phone] Care Team Providers Care Keeler Polygraph Operator Name Role Phone Fanny Bill MD Primary Care Provider [phone] Reason for Visit * Reason Onset Date Comments Medication Refill 09/09/2023 Encounter Details Date Type Department Care Team (Late st Contact Info) Description 09/09/2023 Refill Family Practice [facility] [address] [facility] [place] [address] Fanny Bill MD [address] [facility] [place] [address] Allergies No known active allergiesdocumented as of this encounter (statuses as of 09/10/2023) Medications Medication Sig Dispensed Refills Start Date [...] 01/31/2022 Active LORazepam 0.5 MG Oral Tablet (Ativan)Indications :RLS [...] 04/24/2023 Active Lisinopril 5 MG Oral Tablet (Prinivil)Indicatio ns:Bicuspid aortic valve Take 1 Tablet by mouth in the morning. 90 Tablet 1 05/28/2023 Active Sildenafil Citrate 100 MG Oral Tablet TAKE 1 TABLET BY MOUTH EVERY DAY NEEDED 10 Tablet 10 09/10/2023 Active Sildenafil Citrate 100 MG Oral Tablet TAKE 1 TABLET BY MOUTH EVERY DAY NEEDED 10 Tablet 10 07/29/2022 Discontinue d(Refill) documented as of this encounter (statuses as of 09/10/2023) Active Problems Problem Noted Date Diagnosed Date [...] as of this encounter (statuses as of 09/10/2023) Resolved Problems Problem Noted Date Diagnosed Date [...] as of this encounter (statuses as of 09/10/2023) Immunizations Name Administration Dates Next Due COVID-19 mRNA, LNP-s, No Pre serve, 2-Dose Series ([employer]) 03/20/2021,07/18/2020,06/27/2020 Covid-19, Mrna, Lnp-s, Pf, B ivalent, 30 Mcg, IM, 12 yrs and above ([employer]) 04/21/2022 Pneumococcal Conjugate Vacci ne, 20-valent ([id number]) 03/16/2022 Pneumococcal Polysaccharide PPV23 (Pneumovax) 03/23/2021 Season [...] Telephone Encounter - Fanny Bill MD - 09/10/2023 2:46 PM EDTSigned Prescriptions: Disp Refills Sildenafil Citrate 100 MG Oral Tablet 10 Tab*10 Sig: TAKE 1 TABLET BY MOUTH EVERY DAY NEEDED Authorizing Provider: FANNY BILL * Telephone Encounter - Marie Park MED ASSIST - 09/10/2023 2:19 PM EDT Pending Prescriptions: Disp Refills Sildenafil Citrate 100 MG Oral Tablet 10 Tab*10 * Telephone Encounter - Ly Waterman OSA - 09/09/2023 3:55 PM EDT Did you pend patient's preferred pharmacy and medication before forwarding?yes Pharmacy: [facility]- [place] Pending Prescriptions: Disp Refills Sildenafil Citrate 100 MG Oral Tablet 10 Tab*10 Last Visit: 10/11/2022 (in office), 08/19/2023 (telemedicine) Next Visit: Visit date not found If no future appointments scheduled, and last appointment is greater than a year ago, please schedule patient for a follow-up appointment Last date the medication was ordered: 07.29.22 Is this request for a controlled substance?No [...] AM EDT Office Visit [facility], [address] [place] [address] Ranjit Gregory MD [address] [place] [address] 10/28/2023 1:00 PM EDT Appointment Cardiac Studies, [facility] [address] [place] [address] Scheduled Procedures Name Priority Associated Diagnoses Date/Ti me COLONOSCOPY FLEXIBLE PROXIMAL DIAGNOSTIC Recall History of colon polyps Health Maintenance Due Date Last Done Comments AAA Screening 02/09/2020 Depression Screening 01/05/2022 01/05/2021 Zoster Vaccines (3 of 3) 05/11/2022 03/16/2022, 12/07 COVID-19 Vaccine ( - season) 2023 04/21/2022, 03/20/2021, 07/18/2020, Additional history [...] this encounter Medical Devices Implanted Type Area Traffic Attendant Device Identifier Shelf Expiration Date Model / Serial / Lot Mesh 3dmax 4.1x6.2in Lft Lrg - [id number] Implanted:Qty: 1 on 01/22/2016 by Omid Dumont MD at OR [facility] Left: Groin CR BARD : DAVOL 09/03/2020 [id number] / / [id number] documented as of this encounter Care Teams Keeler Polygraph Operator Relationship Specialty Start Date End Date Fanny Bill MD [address] [place] [address] PCP - General Family Medicine 03/23/21 documented as of this encounter
[2024-02-15 20:35] VITALS: TEMP 98.2
--- NOTE | 2024-02-15 21:23 | Emergency Department Note ---
Impression & Plan SOB (shortness of breath), Aspiration of food, Elevated troponin ED Provider Note CHIEF COMPLAINT: Shortness of breath HISTORY OF PRESENTING ILLNESS: This 69-year-old male patient presents to the emergency department with his for evaluation of shortness of breath. The patient states that he choked on a piece of food last week and has had intermittent shortness of breath since that time. He states that it was chips and corn dip. He states that he had a really time getting the food to pass and still feels like there is something in his esophagus and has increased pain with taking a full breath. He feels like he needs to cough something up, but can't. He is coughing a lot and has started to wheeze as well. Gets more SOB with activity with increased wheezing. No history of asthma, COPD, or wheezing. He is normally a pretty active person. Not having chest pain, just a feeling like something is stuck in his chest or esophagus. He is not on any blood thinners. He denies any abdominal pain, nausea, or vomiting. Denies any fevers. No cough or URI symptoms prior to getting the food stuck. REVIEW OF SYSTEMS: See HPI for pertinent positives and pertinent negatives. ALLERGIES: NKDA MEDICATIONS: See below PAST MEDICAL HISTORY: See below PHYSICAL EXAM: VITALS: Vitals are noted on the nurse's note and reviewed by myself. GENERAL: Non toxic, no acute distress, non-diaphoretic. SKIN: Capillary refill <2 sec. EYES: PERRLA. EOMI. Conjunctivae without injection, sclerae without icterus. NOSE: Patent without discharge. MOUTH: Mucous membranes moist. Uvula midline. Airway patent. NECK: Supple without nuchal rigidity. HEART: Regular rate and rhythm with murmur noted. LUNGS: Clear to auscultation bilaterally with a few scattered wheezes without rales or rhonchi. No retractions or accessory muscle use. ABDOMEN: Positive bowel sounds x 4. Normal tympanic percussion. Soft, nontender. No masses or organomegaly. Landa sign negative. No guarding or rebound tenderness. No focal RLQ or LLQ tenderness. MUSCULOSKELETAL: No gross musculoskeletal defects. NEURO: Patient was alert and oriented. No focal neurological deficits. DIFFERENTIAL DIAGNOSIS: Differential diagnosis includes URI, bronchitis, pneumonia, pneumothorax, hemothorax, PE, VT, pericarditis, myocarditis, airway obstruction, aspiration, pulmonary edema, asthma, COPD, CHF, pleurisy, metabolic acidosis, anemia, neoplasm, or others. ED COURSE AND MEDICAL DECISION MAKING: HISTORY FROM INDEPENDENT HISTORIAN: Additional history obtained from patient's . MEDICATIONS GIVEN: 500 mL normal saline solution bolus. Pepcid 20 mg IV. DuoNeb treatment. Aspirin 324 mg p.o. chewed. MONITOR: Continuous spoke maker: Order was placed for continuous spoke maker. Patient was placed on the spoke maker and continuous pulse ox. Patient was noted to be in normal sinus rhythm at an initial rate of 70 bpm per my interpretation. EKG: EKG was interpreted by myself as normal sinus rhythm at [address] bpm with no acute ST or T wave changes. INTERPRETATION OF LABS: I interpreted the labs with full lab results as below in the lab section of this note. Pertinent lab results discussed in the MDM section below. INTERPRETATION OF IMAGING: Imaging studies were interpreted by myself and read by radiology as per the imaging section of this note. CT scan of the chest with IV contrast showed no evidence for PE. However, it did show mild debris occluding the left lower lobe bronchi concerning for mild aspiration. CONSULTATIONS: On-call hospitalist [facility] SUMMARY: I examined the patient. The patient presents to the emergency department for evaluation of continued shortness of breath, chest pressure, and globus sensation after choking on some chips and corn dip approximately 1 week ago. He still feels like something is in his chest or esophagus. He has been having wheezing and shortness of breath with exertion since the episode of choking. He does not have a history of asthma, COPD, wheezing, or other pulmonary etiologies per patient. An IV lock was placed and labs were drawn. The patient was given 500 mL normal saline solution bolus, Pepcid 20 mg IV, and DuoNeb treatment with only slight improvement of his symptoms. White blood cell count normal 8.91. Hemoglobin slightly low at 13.7. Platelet count normal at 246. Coags were normal. CMP without significant abnormalities. TSH normal. Magnesium normal. Urinalysis was normal. High-sensitivity troponin initially elevated at 27.7 with repeat high sensitive troponin decreased to 25.9. EKG without ischemic changes and I do not suspect acute STEMI and I have a low suspicion for ACS at this time. CT scan of the chest with IV contrast showed no evidence for PE. However, it did show mild debris occluding the left lower lobe bronchi concerning for mild aspiration. His elevated troponins may be secondary to demand ischemia from the aspiration. The patient was given aspirin 324 mg p.o. chewed. I had a meaningful discussion about this patient with Dr. Villanueva who agrees with my assessment and the treatment plan. The patient will be admitted for further inpatient evaluation including pulmonary consult. I spoke with the on- call hospitalist who agreed to admit the patient for further evaluation and treatment. Please refer to their dictation for further details. The patient's care was transferred in stable condition. DIAGNOSIS: Shortness of breath Aspiration Elevated troponin Past Med/Surg History Problem List (Updated 02/16/24 @ 06:04 by Miriam Alvarado PA-C) Elevated troponin (Acute) Aspiration of food (Acute) SOB (shortness of breath) (Acute) History of left knee replacement H/O bilateral hip replacements Septic prepatellar bursitis of left knee Trochanteric bursitis, right hip Screen for colon cancer Encounter for pre-operative examination Medical History Cardiac murmur Fat embolism GERD (gastroesophageal reflux disease) Hyperlipidemia Hypertension Osteoarthritis Septic prepatellar bursitis of left knee Sleep apnea Trochanteric bursitis, right hip Surgical History H/O bilateral hip replacements History of ankle fusion History of carpal tunnel release History of colonoscopy History of left knee replacement History of repair of rotator cuff History of tooth extraction History of total left hip replacement History of total left knee replacement (TKR) History of total right hip replacement History of umbilical hernia repair Family History Other No family history of adverse response to anesthesia Social History Smoking Status: Never smoker Second Hand Exposure: No; Do You Dip or Chew Tobacco: No; Hx Alcohol Use: Yes Alcohol type: beer Hx Substance Use: No Preferred Language: Czech Communication Ability: Effective 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 Required: No Beliefs That Will Affect Care: None Current Living Situation: Spouse Other Information That Helps Us Care for You: No Feels Safe at Home: Yes Safety Concerns: Feels Safe At This Time Assistive Devices: Glasses Allergies Allergies Allergy/AdvReac Type Severity Reaction Status Date / Time No Known Allergies Allergy Verified 02/16/24 01:26 Home Meds Home Medications Medication Instructions Recorded Confirmed citalopram 20 mg tablet 10 mg PO QA 11/07/21 02/16/24 lisinopril 5 mg tablet 5 mg PO QAM 11/07/21 02/16/24 omeprazole 20 mg tablet,delayed 20 mg PO QAM 11/07/21 02/16/24 release rosuvastatin 10 mg tablet 10 mg PO QAM 11/07/21 02/16/24 tamsulosin 0.4 mg capsule 0.4 mg PO QAM 11/07/21 02/16/24 aspirin 81 mg tablet,delayed 81 mg PO DAILY 02/16/24 02/16/24 release ibuprofen 200 mg tablet 400 mg PO QA 02/16/24 02/16/24 Results & Data (ED) Vital Signs Vital Signs - 24 hr 02/15/24 20:32 02/15/24 21:15 02/15/24 21:15 Temperature 36.8 C Temperature Source Temporal Artery Scan Pulse Rate 65 Pulse Rate [Right] Pulse Rhythm Regular Pulse Strength Normal Respiratory Rate 18 Respiratory Effort / Characteristics Non-Labored Spontaneous Non-Labored Spontaneous Respiratory Depth Normal Normal Respiratory Pattern Regular Regular Blood Pressure 144/83 H Blood Pressure [Right Arm] Blood Pressure Mean 103 Blood Pressure Mean [Right Arm] Blood Pressure Position Sitting Blood Pressure Position [Right Arm] Pulse Oximetry 95 95 Oxygen Delivery Method Room Air Room Air Room Air Oxygen Flow Rate 0 Sepsis Recent Fever Within 48 Hours No Sepsis New/Unexplained Change in Mental Status N/A Sepsis Action Taken by Nursing No Action Required 02/15/24 21:17 02/15/24 21:31 02/15/24 22:47 Temperature Temperature Source Pulse Rate 67 Pulse Rate [Right] 75 Pulse Rhythm Pulse Strength Respiratory Rate 16 Respiratory Effort / Characteristics Non-Labored Spontaneous Respiratory Depth Normal Respiratory Pattern Blood Pressure Blood Pressure [Right Arm] 175/79 H Blood Pressure Mean Blood Pressure Mean [Right Arm] 111 Blood Pressure Position Blood Pressure Position [Right Arm] Sitting Pulse Oximetry 95 98 Oxygen Delivery Method Room Air Room Air Oxygen Flow Rate Sepsis Recent Fever Within 48 Hours Sepsis New/Unexplained Change in Mental Status Sepsis Action Taken by Nursing 02/16/24 00:01 02/16/24 01:41 02/16/24 02:00 Temperature Temperature Source Pulse Rate 61 Pulse Rate [Right] 56 L 56 L Pulse Rhythm Pulse Strength Respiratory Rate 18 Respiratory Effort / Characteristics Respiratory Depth Respiratory Pattern Blood Pressure Blood Pressure [Right Arm] 182/93 H Blood Pressure Mean Blood Pressure Mean [Right Arm] 122 Blood Pressure Position Blood Pressure Position [Right Arm] Pulse Oximetry 94 95 Oxygen Delivery Method Room Air Room Air Oxygen Flow Rate Sepsis Recent Fever Within 48 Hours Sepsis New/Unexplained Change in Mental Status Sepsis Action Taken by Nursing Laboratory Data 02/15/24 21:46 02/15/24 21:46 Lab Results 02/15/24 02/15/24 Range/Units 21:46 23:58 WBC 8.91 (4.8-10.8) K/ul RBC 4.41 L (4.70-6.10) M/uL Hgb 13.7 L (14.0-18.0) g/dl Hct 38.3 L (42.0-52.0) % MCV 86.8 (80.0-100.0) fL MCH 31.1 (25.0-34.0) pg MCHC 35.8 (32.0-36.0) g/dL RDW Std Deviation 38.9 (36.4-46.3) fL RDW Coeff of Keren 12.1 (11.5-14.5) % Plt Count 246 (130-400) K/uL MPV 10.6 (9.4-12.4) fL Immature Gran % (Auto) 0.2 % Neut % (Auto) 64.1 % Lymph % (Auto) 21.9 % [place] % (Auto) 9.9 % Eos % (Auto) 3.0 % Baso % (Auto) 0.9 % Neut # (Auto) 5.71 (1.40-6.50) K/uL Lymph # (Auto) 1.95 (1.20-3.40) K/uL [place] # (Auto) 0.88 H (0.11-0.59) K/uL Eos # (Auto) 0.27 (0.00-0.50) K/uL Baso # (Auto) 0.08 (0.00-0.20) K/uL Immature Gran # (Auto) 0.02 (0.01-0.20) K/uL PT 10.8 (9.0-12.0) Seconds INR 1.0 (0.9-1.1) APTT 25 (21-31) Seconds PTT Ratio 0.9 Sodium 139 (136-145) mmol/L Potassium 3.9 (3.5-5.1) mmol/L Chloride 105 (98-107) mmol/L Carbon Dioxide 27 (21-32) mmol/L Anion Gap 7 (3-11) BUN 17 (6-23) mg/dl Creatinine 0.79 (0.6-1.4) mg/dl Est Cr Clr Drug Dosing 103.0 ml/min Est GFR ( Amer) 106.2 ml/min Est GFR (Non-Af Amer) 91.6 ml/min BUN/Creatinine Ratio 21.5 H (10-20) Glucose 88 (70-99(Fasting)) mg/dl Calcium 9.5 (8.6-10.3) mg/dl Magnesium 1.9 (1.7-2.4) mg/dl Total Bilirubin 0.5 (0.2-1.0) mg/dl AST 31 (13-39) U/L ALT 23 (7-52) U/L Alkaline Phosphatase 68 (34-104) U/L Troponin I High Sens 27.7 H 25.9 H (0-20) pg/ml Total Protein 7.2 (6.0-8.3) gm/dl Albumin 4.6 (3.4-5.0) gm/dl Globulin 2.6 (2.5-4.0) gm/dl Albumin/Globulin Ratio 1.8 (0.9-2) Lipase 44 (11-82) U/L Urine Color Yellow Urine Appearance Clear (Clear) Urine pH 6.5 (4.5-7.5) Ur Specific [place] 1.011 (1.000-1.030) Urine Protein Negative (Negative) Urine Glucose (UA) Negative (Negative) Urine Ketones Negative (Negative) Urine Blood Negative (Negative) Urine Nitrite Negative (Negative) Urine Bilirubin Negative (Negative) Urine Urobilinogen Negative (Negative) Ur Leukocyte Esterase Negative (Negative) Administered Medications Sodium Chloride (Nss) 1,000 mls @ 100 mls/hr IV .Q10H ROBERT Stop: 03/17/24 04:33 Last Admin: 02/16/24 05:17 Dose: 100 mls/hr Documented By: HH Ampicillin Sodium/Sulbactam Sodium (Unasyn) 3,000 mg in 100 mls @ 200 mls/hr IV Q6H [facility]; Protocol Stop: 02/23/24 04:44 Last Infusion: 02/16/24 05:54 Dose: Infused Documented By: Admin: 02/16/24 05:16 Dose: 200 mls/hr Documented By: KEYON Discontinued Medications Albuterol (Albut/Ipratrop 3mg/0.5mg Neb 3 Ml Vial) 3 ml NEB NOW STA; Protocol Stop: 02/15/24 21:32 Last Admin: 02/15/24 21:50 Dose: 3 ml Documented By: CARMELA Aspirin (Aspirin Chew 324 Mg) 324 mg PO NOW STA Stop: 02/15/24 23:41 Last Admin: 02/15/24 23:55 Dose: 324 mg Documented By: KEYON Aspirin (Aspirin 81 Mg Chew) Confirm Administered Dose 81 mg .ROUTE .STK-MED ONE Stop: 02/15/24 23:56 Last Admin: 02/16/24 00:06 Dose: Not Given Documented By: KEYON Sodium Chloride (Nss) 500 mls @ 999 mls/hr IV .Q31M STA Stop: 02/15/24 22:01 Last Infusion: 02/15/24 22:21 Dose: Infused Documented By: Admin: 02/15/24 21:50 Dose: 999 mls/hr Documented By: CARMELA Famotidine (Pepcid 20mg Iv Push) 20 mg in 5 mls @ 2.5 mls/min IV NOW STA Stop: 02/15/24 21:32 Last Admin: 02/15/24 21:50 Dose: 2.5 mls/min Documented By: CARMELA Ioversol (Optiray 320 100ml) 100 ml IV ONCE ONE Stop: 02/15/24 22:42 Last Admin: 02/15/24 22:42 Dose: 93 ml Documented By: FELA Imaging Data Radiologist's Impression: Chest CT 02/15/24 21:32 Exam(s): CT CHEST With Contrast IV Amt: 93 ML OPTIRAY 320 EXAM: CT Chest With Intravenous Contrast CLINICAL HISTORY: Reason for exam: SOB, chest pain, dysphagia after choking on food. TECHNIQUE: Axial computed tomography images of the chest with intravenous contrast. Automated exposure control was utilized for the study. A dose lowering technique was utilized adhering to the principles of ALARA. CONTRAST: Patient received 93 ML OPTIRAY 320 of IV contrast COMPARISON: No relevant prior studies available. FINDINGS: Lungs: Mild debris occluding the LEFT lower lobe bronchi, concerning for mild aspiration. No mass. Pleural space: Unremarkable. No pneumothorax. No significant effusion. Heart: Unremarkable. No cardiomegaly. No significant pericardial effusion. No significant coronary artery calcifications. Bones/joints: Unremarkable. No acute fracture. No dislocation. Soft tissues: Unremarkable. Vasculature: Unremarkable. No thoracic aortic aneurysm. No pulmonary embolism. Lymph nodes: Unremarkable. No enlarged lymph nodes. Liver: Hepatic steatosis. IMPRESSION: 1. No pulmonary embolism. 2. Mild debris occluding the LEFT lower lobe bronchi, concerning for mild aspiration. Electronically signed by: Maikel Chacko MD 02/16/24 00:24 AM Discharge Plan Visit Data Chief Complaint: Shortness of Breath/Dyspnea Stated Complaint: SOB ED Provider: [facility] ED Midlevel Provider: Miriam Alvarado Discharge Problem: SOB (shortness of breath), Aspiration of food, Elevated troponin Patient Disposition: Admitted As Inpatient Condition: Good Discharge Instructions Interventions: ED Discharge Assessment Last Done: 02/16/24 04:34 Discharge Problem: Aspiration of food Qualifiers: Encounter type: initial encounter Qualified Code(s): T17.928A - Food in respiratory tract, part unspecified causing other injury, initial encounter; W44.F3XA - Food entering into or through a natural orifice, initial encounter
[2024-02-15] MEDS: ALBUT/IPRATROP 3MG/0.5MG NEB 3 ML VIAL NEB STA (21:50)
[2024-02-15] MEDS: FAMOTIDINE 20MG IV PUSH 20 MG/5 ML SYR IV STA (21:50)
[2024-02-15] MEDS: SODIUM CHLORIDE 0.9% 500 ML IV STA (21:50)
[2024-02-15 22:10] LABS: Appearance Urine Clear (Clear); Bilirubin Urine Negative (Negative); Blood Urine Negative (Negative); Color Urine Yellow; Glucose Urine UA Negative (Negative); Ketones Urine Negative (Negative); Leukocyte Esterase Urine Negative (Negative); Nitrite Urine Negative (Negative); Protein Urine Negative (Negative); Specific Gravity Urine 1.011 (1.000-1.030); Urobilinogen Urine Negative (Negative); pH Urine 6.5 (4.5-7.5)
[2024-02-15 22:16] LABS: Basophils # (auto) 0.08 K/uL (0.00-0.20); Basophils % (auto) 0.9 %; Eosinophils # (auto) 0.27 K/uL (0.00-0.50); Hematocrit (blood only) 38.3 % (42.0-52.0); Hemoglobin 13.7 g/dl (14.0-18.0); Immature Granulocytes # (auto) 0.02 K/uL (0.01-0.20); Immature Granulocytes % (auto) 0.2 %; Lymphocytes # (auto) 1.95 K/uL (1.20-3.40); Lymphocytes % (auto) 21.9 %; Mean Corpuscular Hemoglobin 31.1 pg (25.0-34.0); Mean Corpuscular Hgb Conc 35.8 g/dL (32.0-36.0); Mean Corpuscular Volume 86.8 fL (80.0-100.0); Mean Platelet Volume 10.6 fL (9.4-12.4); Monocytes # (auto) 0.88 K/uL (0.11-0.59); Monocytes % (auto) 9.9 %; Neutrophils # (auto) 5.71 K/uL (1.40-6.50); Neutrophils % (auto) 64.1 %; Platelet Count 246 K/uL (130-400); RDW Coefficient of Variation 12.1 % (11.5-14.5); RDW Standard Deviation 38.9 fL (36.4-46.3); Red Blood Count 4.41 M/uL (4.70-6.10); White Blood Count 8.91 K/ul (4.8-10.8)
[2024-02-15 22:28] LABS: Albumin Globulin Ratio 1.8 (0.9-2); Albumin Level 4.6 gm/dl (3.4-5.0); BUN Creatinine Ratio 21.5 (10-20); Bilirubin,Total 0.5 mg/dl (0.2-1.0); Calcium 9.5 mg/dl (8.6-10.3); Est GFR (African American) 106.2 ml/min; Est GFR (Non-African American) 91.6 ml/min; Globulin 2.6 gm/dl (2.5-4.0); Magnesium 1.9 mg/dl (1.7-2.4); Potassium 3.9 mmol/L (3.5-5.1); Total Protein 7.2 gm/dl (6.0-8.3)
[2024-02-15 22:37] LABS: Partial Thromboplastin Ratio 0.9; Partial Thromboplastin Time 25 Seconds (21-31); Prothrombin Time 10.8 Seconds (9.0-12.0)
[2024-02-15] MEDS: OPTIRAY 320 100ml IV ONE (22:42)
[2024-02-15 23:10] LABS: Troponin I High Sensitivity 27.7 pg/ml (0-20)
[2024-02-15] MEDS: ASPIRIN CHEW 324 MG PO STA (23:55)
[2024-02-16] MEDS: ASPIRIN 81 MG CHEW ONE (00:06)
--- NOTE | 2024-02-16 00:25 | CT Scan Report ---
Exam(s): CT CHEST With Contrast IV Amt: 93 ML OPTIRAY 320 EXAM: CT Chest With Intravenous Contrast CLINICAL HISTORY: Reason for exam: SOB, chest pain, dysphagia after choking on food. TECHNIQUE: Axial computed tomography images of the chest with intravenous contrast. Automated exposure control was utilized for the study. A dose lowering technique was utilized adhering to the principles of ALARA. CONTRAST: Patient received 93 ML OPTIRAY 320 of IV contrast COMPARISON: No relevant prior studies available. FINDINGS: Lungs: Mild debris occluding the LEFT lower lobe bronchi, concerning for mild aspiration. No mass. Pleural space: Unremarkable. No pneumothorax. No significant effusion. Heart: Unremarkable. No cardiomegaly. No significant pericardial effusion. No significant coronary artery calcifications. Bones/joints: Unremarkable. No acute fracture. No dislocation. Soft tissues: Unremarkable. Vasculature: Unremarkable. No thoracic aortic aneurysm. No pulmonary embolism. Lymph nodes: Unremarkable. No enlarged lymph nodes. Liver: Hepatic steatosis. IMPRESSION: 1. No pulmonary embolism. 2. Mild debris occluding the LEFT lower lobe bronchi, concerning for mild aspiration. Electronically signed by: Maikel Chacko MD 02/16/24 00:24 AM
--- NOTE | 2024-02-16 00:43 | Emergency Department Note ---
ED Visit Note I was consulted by the Advanced Practice Provider, Miriam Alvarado PA-C. I performed a substantive portion of the visit. This includes aspects of: History: Patient is a 69-year-old male presenting with shortness of breath. Reports that he choked while eating chips and dip 6 days ago. He states that since that time has been having intermittent shortness of breath. He reports he feels like something is stuck in his chest. He states that shortness of breath is worse when he tries to take a deep breath. Denies any nausea or vomiting. Denies any fevers. MDM: - Laboratory workup interpreted by myself showed normal WBC; normal PT/INR; stable electrolytes; elevated troponin (27.7 --> 25.9); normal lipase - UA negative for infection - CT chest with IV contrast negative for PE but noted to have debris in the left lower lobe bronchus concerning for aspiration. - Patient's NSTEMI likely type II in etiology, as he is not having any chest pain. Given 20 mg IV pepcid in ER and 500 cc NS. Given duoneb treatment. - Given troponin elevation and evidence of aspiration, will admit to hospitalist service. .
--- NOTE | 2024-02-16 04:09 | History & Physical Report ---
Date of Service February 16, 2024 Assessment & Plan (1) SOB (shortness of breath): Plan: 69-year-old male with past medical history significant for hyperlipidemia, obstructive sleep apnea, bicuspid aortic valve, moderate aortic stenosis, moderate aortic insufficiency, hypertension, GERD, obesity, BPH, neuroforaminal stenosis cervical spine, generalized osteoarthritis, generalized anxiety disorder, presents because of shortness of breath. Patient states last Friday while eating corn he choked on it. Since then is getting mild shortness of breath. Has cough and bringing up phlegm. Since then always feels something stuck in his throat and has feeling to cough it out. He is not getting better so he came to the ER today. States he is eating and drinking okay since then but feels something is stuck in the throat. Denies any fevers. Denies chest pain. No nausea vomiting. No headache. No dizziness. Vision is okay. No runny nose or sore throat. Normal bowel and bladder movements. Currently resting comfortably and hemodynamically stable. Shortness of breath Aspiration CT chest no PE. Mild debris's occluding the left lower bronchi concerning for mild aspiration IV Unasyn, nebs as needed N.p.o. IV fluids Consult pulmonary in a.m. Speech consult Hypertension On lisinopril KRISTAN cpap q hs Hyperlipidemia On statin BPH On Flomax GERD Omeprazole Moderate aortic stenosis Moderate aortic insufficiency Monitor for volume overload Generalized anxiety disorder On citalopram DVT prophylaxis SCDs for now Disposition Med/telemetry Full code History of Present Illness Chief Complaint: Shortness of breath Primary Care Provider: Dariusz Billingsley MD 69-year-old male with past medical history significant for hyperlipidemia, obstructive sleep apnea, bicuspid aortic valve, moderate aortic stenosis, moderate aortic insufficiency, hypertension, GERD, obesity, BPH, neuroforaminal stenosis cervical spine, generalized osteoarthritis, generalized anxiety disorder, presents because of shortness of breath. Patient states last Friday while eating corn he choked on it. Since then is getting mild shortness of breath. Has cough and bringing up phlegm. Since then always feels something stuck in his throat and has feeling to cough it out. He is not getting better so he came to the ER today. States he is eating and drinking okay since then but feels something is stuck in the throat. Denies any fevers. Denies chest pain. No nausea vomiting. No headache. No dizziness. Vision is okay. No runny nose or sore throat. Normal bowel and bladder movements. Currently resting comfortably and hemodynamically stable. Past medical history. As mentioned above Past surgical history. Abdominal wall hernia repair laparoscopic. Left bimalleolar ankle fracture with fixation. Carpal tunnel surgery right. Colonoscopy. Dental surgery. Right fusion of ankle joint. Injection of lumbar cervical or thoracic spine. Bilateral hip replacement. Left knee replacement. Social history. . Quit smoking 1973. Alcohol occasional. No drug use. Family history. Maternal grandfather had cancer. Maternal uncle had tuberculosis. Paternal uncle had stroke. Father had brain aneurysm. Allergies Allergy/AdvReac Type Severity Reaction Status Date / Time No Known Allergies Allergy Verified 02/16/24 01:26 Home Medications Medication Instructions Recorded Confirmed Type citalopram 20 mg tablet 10 mg PO QAM 11/07/21 02/16/24 History lisinopril 5 mg tablet 5 mg PO QAM 11/07/21 02/16/24 History omeprazole 20 mg tablet,delayed 20 mg PO QAM 11/07/21 02/16/24 History release rosuvastatin 10 mg tablet 10 mg PO QAM 11/07/21 02/16/24 History tamsulosin 0.4 mg capsule 0.4 mg PO QAM 11/07/21 02/16/24 History aspirin 81 mg tablet,delayed 81 mg PO DAILY 02/16/24 02/16/24 History release ibuprofen 200 mg tablet 400 mg PO QAM 02/16/24 02/16/24 History Past Med/Surg History Problem List (Updated 02/16/24 @ 06:04 by Miriam Alvarado PA-C) Elevated troponin (Acute) Aspiration of food (Acute) SOB (shortness of breath) (Acute) History of left knee replacement H/O bilateral hip replacements Septic prepatellar bursitis of left knee Trochanteric bursitis, right hip Screen for colon cancer Encounter for pre-operative examination Medical History Cardiac murmur Fat embolism GERD (gastroesophageal reflux disease) Hyperlipidemia Hypertension Osteoarthritis Septic prepatellar bursitis of left knee Sleep apnea Trochanteric bursitis, right hip Surgical History H/O bilateral hip replacements History of ankle fusion History of carpal tunnel release History of colonoscopy History of left knee replacement History of repair of rotator cuff History of tooth extraction History of total left hip replacement History of total left knee replacement (TKR) History of total right hip replacement History of umbilical hernia repair Family History Other No family history of adverse response to anesthesia Social History Smoking Status: Never smoker Second Hand Exposure: No; Do You Dip or Chew Tobacco: No; Hx Alcohol Use: Yes Alcohol type: beer Hx Substance Use: No Preferred Language: Setswana Communication Ability: Effective Portfolio Lead Required: No Beliefs That Will Affect Care: None Current Living Situation: Spouse Other Information That Helps Us Care for You: No Feels Safe at Home: Yes Safety Concerns: Feels Safe At This Time Assistive Devices: Glasses Review of Systems Review of Systems: All systems reviewed & are unremarkable except as noted in HPI & below Physical Exam Physical Exam: General- Not in distress. Head- atraumatic Eyes- PERRL. ENT- oropharynx clear Neck- supple, no JVD. Lungs- clear to auscultation no wheezing or crackles Heart- regular rate and rhythm; no murmur, no gallop. Abdomen- normal bowel sounds, soft, nontender, no distension Extremities: No edema or erythema seen. Neuro- alert, oriented PERRL, no facial palsy; no dysarthria; moves extremities. Skin- warm & dry Results & Data Results & Data Vital Signs (Past 12 Hours) Vital Signs Temp Pulse Pulse Resp BP BP Pulse Ox 02/16/24 02:00 56 L 95 02/16/24 01:41 61 02/16/24 00:01 56 L 18 182/93 H 94 02/15/24 22:47 75 16 175/79 H 98 02/15/24 21:31 95 02/15/24 21:17 67 02/15/24 21:15 95 02/15/24 21:15 02/15/24 20:32 36.8 C 65 18 144/83 H 95 O2 Del Method O2 Flow Rate 02/16/24 02:00 Room Air 02/16/24 01:41 02/16/24 00:01 Room Air 02/15/24 22:47 Room Air 02/15/24 21:31 Room Air 02/15/24 21:17 02/15/24 21:15 Room Air 0 02/15/24 21:15 Room Air 02/15/24 20:32 Room Air Diagnostic Findings Laboratory Results WBC 8.91 K/ul (4.8-10.8) 02/15/24 21:46 RBC 4.41 M/uL (4.70-6.10) L 02/15/24 21:46 Hgb 13.7 g/dl (14.0-18.0) L 02/15/24 21:46 Hct 38.3 % (42.0-52.0) L 02/15/24 21:46 MCV 86.8 fL (80.0-100.0) 02/15/24 21:46 MCH 31.1 pg (25.0-34.0) 02/15/24 21:46 MCHC 35.8 g/dL (32.0-36.0) 02/15/24 21:46 RDW Std Deviation 38.9 fL (36.4-46.3) 02/15/24 21:46 RDW Coeff of Keren 12.1 % (11.5-14.5) 02/15/24 21:46 Plt Count 246 K/uL (130-400) 02/15/24 21:46 MPV 10.6 fL (9.4-12.4) 02/15/24 21:46 Immature Gran % (Auto) 0.2 % 02/15/24 21:46 Neut % (Auto) 64.1 % 02/15/24 21:46 Lymph % (Auto) 21.9 % 02/15/24 21:46 [place] % (Auto) 9.9 % 02/15/24 21:46 Eos % (Auto) 3.0 % 02/15/24 21:46 Baso % (Auto) 0.9 % 02/15/24 21:46 Neut # (Auto) 5.71 K/uL (1.40-6.50) 02/15/24 21:46 Lymph # (Auto) 1.95 K/uL (1.20-3.40) 02/15/24 21:46 [place] # (Auto) 0.88 K/uL (0.11-0.59) H 02/15/24 21:46 Eos # (Auto) 0.27 K/uL (0.00-0.50) 02/15/24 21:46 Baso # (Auto) 0.08 K/uL (0.00-0.20) 02/15/24 21:46 Immature Gran # (Auto) 0.02 K/uL (0.01-0.20) 02/15/24 21:46 PT 10.8 Seconds (9.0-12.0) 02/15/24 21:46 INR 1.0 (0.9-1.1) 02/15/24 21:46 APTT 25 Seconds (21-31) 02/15/24 21:46 PTT Ratio 0.9 02/15/24 21:46 Sodium 139 mmol/L (136-145) 02/15/24 21:46 Potassium 3.9 mmol/L (3.5-5.1) 02/15/24 21:46 Chloride 105 mmol/L (98-107) 02/15/24 21:46 Carbon Dioxide 27 mmol/L (21-32) 02/15/24 21:46 Anion Gap 7 (3-11) 02/15/24 21:46 BUN 17 mg/dl (6-23) 02/15/24 21:46 Creatinine 0.79 mg/dl (0.6-1.4) 02/15/24 21:46 Est Cr Clr Drug Dosing 103.0 ml/min 02/15/24 21:46 Est GFR ( Amer) 106.2 ml/min 02/15/24 21:46 Est GFR (Non-Af Amer) 91.6 ml/min 02/15/24 21:46 BUN/Creatinine Ratio 21.5 (10-20) H 02/15/24 21:46 Glucose 88 mg/dl (70-99(Fasting)) 02/15/24 21:46 Calcium 9.5 mg/dl (8.6-10.3) 02/15/24 21:46 Magnesium 1.9 mg/dl (1.7-2.4) 02/15/24 21:46 Total Bilirubin 0.5 mg/dl (0.2-1.0) 02/15/24 21:46 AST 31 U/L (13-39) 02/15/24 21:46 ALT 23 U/L (7-52) 02/15/24 21:46 Alkaline Phosphatase 68 U/L (34-104) 02/15/24 21:46 Troponin I High Sens 25.9 pg/ml (0-20) H 02/15/24 23:58 Total Protein 7.2 gm/dl (6.0-8.3) 02/15/24 21:46 Albumin 4.6 gm/dl (3.4-5.0) 02/15/24 21:46 Globulin 2.6 gm/dl (2.5-4.0) 02/15/24 21:46 Albumin/Globulin Ratio 1.8 (0.9-2) 02/15/24 21:46 Lipase 44 U/L (11-82) 02/15/24 21:46 Urine Color Yellow 02/15/24 21:46 Urine Appearance Clear (Clear) 02/15/24 21:46 Urine pH 6.5 (4.5-7.5) 02/15/24 21:46 Ur Specific [place] 1.011 (1.000-1.030) 02/15/24 21:46 Urine Protein Negative (Negative) 02/15/24 21:46 Urine Glucose (UA) Negative (Negative) 02/15/24 21:46 Urine Ketones Negative (Negative) 02/15/24 21:46 Urine Blood Negative (Negative) 02/15/24 21:46 Urine Nitrite Negative (Negative) 02/15/24 21:46 Urine Bilirubin Negative (Negative) 02/15/24 21:46 Urine Urobilinogen Negative (Negative) 02/15/24 21:46 Ur Leukocyte Esterase Negative (Negative) 02/15/24 21:[address] 02/15/24 21:32 Exam(s): CT CHEST With Contrast IV Amt: 93 ML OPTIRAY 320 EXAM: CT Chest With Intravenous Contrast CLINICAL HISTORY: Reason for exam: SOB, chest pain, dysphagia after choking on food. TECHNIQUE: Axial computed tomography images of the chest with intravenous contrast. Automated exposure control was utilized for the study. A dose lowering technique was utilized adhering to the principles of ALARA. CONTRAST: Patient received 93 ML OPTIRAY 320 of IV contrast COMPARISON: No relevant prior studies available. FINDINGS: Lungs: Mild debris occluding the LEFT lower lobe bronchi, concerning for mild aspiration. No mass. Pleural space: Unremarkable. No pneumothorax. No significant effusion. Heart: Unremarkable. No cardiomegaly. No significant pericardial effusion. No significant coronary artery calcifications. Bones/joints: Unremarkable. No acute fracture. No dislocation. Soft tissues: Unremarkable. Vasculature: Unremarkable. No thoracic aortic aneurysm. No pulmonary embolism. Lymph nodes: Unremarkable. No enlarged lymph nodes. Liver: Hepatic steatosis. IMPRESSION: 1. No pulmonary embolism. 2. Mild debris occluding the LEFT lower lobe bronchi, concerning for mild aspiration. Electronically signed by: Maikel Chacko MD 02/16/24 00:24 AM ECG Additional Comments: ECG. Normal sinus rhythm rate of 61. No significant change was found. Code Status & VTE Plan VTE Prophylaxis Plan VTE Prophylaxis will be ordered: Yes
[2024-02-16] MEDS ORDERED: AMPICILLIN SOD/SULBACTAM SOD 3 GM VIAL IV SCH (04:34)
[2024-02-16] MEDS ORDERED: NITROGLYCERIN SL 0.4 MG/TAB TAB SL PRN (04:34)
[2024-02-16] MEDS ORDERED: LEVALBUTEROL 1.25 MG/3 ML NEB NEB PRN (04:34)
[2024-02-16] MEDS: AMPICILLIN/SULBACTAM SOD 3,000 MG/100 ML BAG IV SCH (05:16)
[2024-02-16] MEDS: SODIUM CHLORIDE 0.9% 1,000 ML IV SCH (05:17)
--- NOTE | 2024-02-16 07:59 | Pulmonary Consultation ---
Date of Consultation February 16, 2024 Assessment & Plan (1) SOB (shortness of breath): (2) Abnormal chest CT: Plan CT chest 02/16/2024 personally reviewed: Minimal paraseptal emphysema appreciated bilaterally Endobronchial secretions/aspiration in the subsegment of the left lower lobe No significant mediastinal lymphadenopathy -- Abnormal chest CT Likely mild aspiration episode No significant atelectasis or collapse of the subsegments. On physical exam patient has no wheezing, no crackles -- KRISTAN On CPAP at home Plan: Add Mucinex, hypertonic saline nebulizer and flutter valve with the patient's regimen Repeat chest x-ray from today does not show any significant change from before. No atelectasis. I think it is reasonable to monitor the patient conservatively given no significant atelectasis or obstruction on the CT chest as well as the chest x- ray from today. I gave the patient option to stay in the hospital and see how he is feeling tomorrow, if there is any worsening then bronchoscopy could be considered But conservative treatment is a reasonable approach at least for now. Patient was asking if he could go home today. Would commend to complete the course of antibiotics, can transition to amox-clav for 5-7 days with probiotic Would recommend patient to be even discharged on hypertonic saline nebulized with albuterol nebulized twice a day along with Mucinex and flutter valve. Recommend repeat chest x-ray in 4-5 days. If there is any worsening in the way he feels or starts developing any chest pain then he is to come to the ER again. Case was discussed with primary team as well as RN at bedside Please note the above document was generated using voice recognition software. It may contain grammatical, syntax or spelling errors.Any formal questions or concerns about the content, text or information contained within the body of this dictation should be directly addressed to the provider for clarification. History of Present Illness Attending Physician: Padmini Browne MD History of Present Illness 69-year-old male present to the hospital with complaints of chest tightness Past medical history: Dyslipidemia, KRISTAN, bicuspid aortic valve, hypertension, GERD, obesity, osteoarthritis, anxiety Pulmonary consulted for abnormal chest CT At the time of examination patient's was in the room He was saturating 96-97% on room air. Not in respiratory distress. Patient stated that last Friday on Labor Day he was eating chips with a dipping sauce. He felt that he aspirated at that time which led to coughing It was trying to see if he is able to just cough it up but nothing came up. He complains of not feeling the same since the aspiration episode. He still able to do his day-to-day activities and even exert himself but gets short of breath without any wheezing Denies any chest pain, no wheezing, no palpitation, no diaphoresis at that time. Occasional chest tightness. Denies any nausea or vomiting Never had any episodes like this in the past. Social history: Only 5-pack-year smoking history, quit around the age of 19. Allergies Allergy/AdvReac Type Severity Reaction Status Date / Time No Known Allergies Allergy Verified 02/16/24 01:26 Home Medications Medication Instructions Recorded Confirmed Type citalopram 20 mg tablet 10 mg PO QAM 11/07/21 02/16/24 History lisinopril 5 mg tablet 5 mg PO QAM 11/07/21 02/16/24 History omeprazole 20 mg tablet,delayed 20 mg PO QAM 11/07/21 02/16/24 History release rosuvastatin 10 mg tablet 10 mg PO QAM 11/07/21 02/16/24 History tamsulosin 0.4 mg capsule 0.4 mg PO QAM 11/07/21 02/16/24 History aspirin 81 mg tablet,delayed 81 mg PO DAILY 02/16/24 02/16/24 History release ibuprofen 200 mg tablet 400 mg PO QAM 02/16/24 02/16/24 History Patient History Medical History Cardiac murmur Fat embolism GERD (gastroesophageal reflux disease) Hyperlipidemia Hypertension Osteoarthritis Septic prepatellar bursitis of left knee Sleep apnea Trochanteric bursitis, right hip Surgical History H/O bilateral hip replacements History of ankle fusion History of carpal tunnel release History of colonoscopy History of left knee replacement History of repair of rotator cuff History of tooth extraction History of total left hip replacement History of total left knee replacement (TKR) History of total right hip replacement History of umbilical hernia repair Family History Other No family history of adverse response to anesthesia Social History Smoking Status: Never smoker Second Hand Exposure: No; Do You Dip or Chew Tobacco: No; Hx Alcohol Use: Yes Alcohol type: beer Hx Substance Use: No Preferred Language: Amharic Communication Ability: Effective Pipe Smoking 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 Operator Required: No Beliefs That Will Affect Care: None Current Living Situation: Spouse Other Information That Helps Us Care for You: No Feels Safe at Home: Yes Safety Concerns: Feels Safe At This Time Assistive Devices: Glasses Review of Systems 2 Review of Systems: All systems reviewed & are unremarkable except as noted in HPI & below Physical Exam 2 Physical Exam: Constitutional: No acute distress HEENT: EOMI, PERRLA Respiratory system: Good air entry bilaterally, no wheeze, no rhonchi, no crackles CVS: S1-S2 positive, positive 2 out of 6 systolic murmur appreciated best at aorta Abdomen: Soft, nontender, nondistended, positive bowel sounds x4, obese Extremities: +2 pulses bilaterally radialis/ dorsalis pedis, no cyanosis, no edema Neuro: Awake alert oriented x3 Psych: Normal mood and affect G/U: No Johnson Skin: no rashes, warm and dry Lymphatic: no cervical or axillary lymphadenopathy Results & Data Results & Data Vital Signs (Past 12 Hours) Vital Signs Temp Pulse Pulse Pulse Resp BP BP 02/16/24 06:58 49 L 02/16/24 05:28 62 15 176/90 H 02/16/24 05:26 02/16/24 05:26 57 L 12 163/80 H 02/16/24 02:00 56 L 02/16/24 01:41 61 02/16/24 00:01 56 L 18 182/93 H 02/15/24 22:47 75 16 175/79 H 02/15/24 21:31 02/15/24 21:17 67 02/15/24 21:15 02/15/24 21:15 02/15/24 20:32 36.8 C 65 18 144/83 H Pulse Ox Pulse Ox O2 Del Method O2 Del Method O2 Flow Rate 02/16/24 06:58 02/16/24 05:28 94 Room Air 02/16/24 05:26 96 Room Air 02/16/24 05:26 95 Room Air 02/16/24 02:00 95 Room Air 02/16/24 01:41 02/16/24 00:01 94 Room Air 02/15/24 22:47 98 Room Air 02/15/24 21:31 95 Room Air 02/15/24 21:17 02/15/24 21:15 95 Room Air 0 02/15/24 21:15 Room Air 02/15/24 20:32 95 Room Air Laboratory Results 02/15/24 21:46 02/15/24 21:46 PG Care Time/CCT Total # of Minutes Spent Total Time Spent with Patient: Total time spent is greater than 50% in coordination of care (as documented) at patient's floor/unit and/or counseling patient: [place] [address] INT INP/OBS CARE 3/75MIN Patient Type New Diagnoses SOB (shortness of breath) R06.[address] R93.89
[2024-02-16 09:08] LABS: Basophils # (auto) 0.07 K/uL (0.00-0.20); Basophils % (auto) 1.1 %; Eosinophils # (auto) 0.28 K/uL (0.00-0.50); Eosinophils % (auto) 4.2 %; Hematocrit (blood only) 36.5 % (42.0-52.0); Hemoglobin 12.8 g/dl (14.0-18.0); Immature Granulocytes # (auto) 0.02 K/uL (0.01-0.20); Immature Granulocytes % (auto) 0.3 %; Lymphocytes # (auto) 1.36 K/uL (1.20-3.40); Lymphocytes % (auto) 20.5 %; Mean Corpuscular Hemoglobin 30.4 pg (25.0-34.0); Mean Corpuscular Hgb Conc 35.1 g/dL (32.0-36.0); Mean Corpuscular Volume 86.7 fL (80.0-100.0); Mean Platelet Volume 10.4 fL (9.4-12.4); Monocytes % (auto) 10.5 %; Neutrophils # (auto) 4.21 K/uL (1.40-6.50); Neutrophils % (auto) 63.4 %; Platelet Count 212 K/uL (130-400); RDW Coefficient of Variation 12.3 % (11.5-14.5); RDW Standard Deviation 39.4 fL (36.4-46.3); Red Blood Count 4.21 M/uL (4.70-6.10); White Blood Count 6.64 K/ul (4.8-10.8)
[2024-02-16 09:32] LABS: BUN Creatinine Ratio 20.3 (10-20); Calcium 8.7 mg/dl (8.6-10.3); Creatinine Clr Calc Pharmacy 102.9 ml/min; Est GFR (African American) 106.2 ml/min; Est GFR (Non-African American) 91.6 ml/min; Magnesium 1.9 mg/dl (1.7-2.4)
--- NOTE | 2024-02-16 09:58 | XRay Report ---
SINGLE VIEW CHEST CLINICAL HISTORY: Dyspnea. Choking episode. FINDINGS: 2 AP, portable, upright chest radiographs are compared to study dated 08/26/2013 and correla mejia with chest CT dated 02/15/2024. The heart is enlarged. The pulmonary vasculature is noncongested. T here is left basilar scarring/atelectasis. No airspace consolidation typical for pneumonia or large p leural effusion is identified. No pneumothorax is seen. The skeletal structures are osteopenic. The b fely thorax is grossly intact. Arthritic change is seen in the shoulders. IMPRESSION: Cardiomegaly with no active disease in the chest. ACT 112: Negative or not required by law. Electronically signed by: Venkat Tamayo M.D. 02/16/2024 9:56 AM
[2024-02-16] MEDS: ASPIRIN 81 MG ECTAB PO SCH (10:24)
[2024-02-16] MEDS: lisinopril 5 MG TAB PO SCH (10:25)
[2024-02-16] MEDS: CITALOPRAM 20 MG TAB PO SCH (10:25)
[2024-02-16] MEDS: TAMSULOSIN HCL 0.4 MG CAP PO SCH (10:26)
[2024-02-16] MEDS: ROSUVASTATIN CALCIUM 10 MG TAB PO SCH (10:26)
[2024-02-16] MEDS: PANTOprazole 40 MG TAB PO SCH (10:26)
[2024-02-16] MEDS: guaiFENesin 600 MG TABCR PO SCH (10:27)
[2024-02-16 10:35] VITALS: BP 175/87; RESP 17; O2SAT 96
--- NOTE | 2024-02-16 13:00 | Electrocardiogram Report ---
Test Reason : Blood Pressure : */* mmHG Vent. Rate : 61 BPM Atrial Rate : 61 BPM P-R Int : 160 ms QRS Dur : 92 ms QT Int : 408 ms P-R-T Axes : -10 -9 -17 degrees QTcB Int : 410 ms Normal sinus rhythm Poor R wave progression, consider anterior WI vs. lead placement vs. LVH Abnormal ECG When compared with ECG of 26-Aug-2013 14:51, No significant change Confirmed by Vern Sauer ([id number]) on 02/16/2024 12:59:58 PM Referred By: Confirmed By: Vern Sauer
--- NOTE | 2024-02-16 13:37 | Fluoroscopy Report ---
MODIFIED BARIUM SWALLOW CLINICAL HISTORY: assess for aspiration COMPARISON STUDY: None. FLUOROSCOPY TIME: 1.25 minutes. Ka, r: 6.21 mGy. TECHNIQUE: A modified barium swallow was performed in conjunction with Speech Pathology. The patient ingested varying consistencies of barium containing material. Video fluoroscopy was performed. FINDINGS: No tracheal aspiration was identified with thin liquids. Penetration was noted with sequent ial swallows of thin liquids without aspiration. There was no aspiration with nectar thick liquids, p udding consistency or crackers and pudding consistencies. Epiglottic inversion was normal. Laryngeal elevation was normal. IMPRESSION: 1. No tracheal aspiration. Penetration with thin liquids via straw, as described above. Intact swallo wing mechanism. 2. Full recommendations by Speech pathology to follow. ACT 112: Negative or not required by law. Electronically signed by: Gaurav Alonzo M.D. 02/16/2024 1:36 PM
--- NOTE | 2024-02-16 15:39 | Discharge Summary ---
Discharge Summary Date of Service February 16, 2024 Principal Dx & Hospital Course #1 = Principal Diagnosis (1) SOB (shortness of breath): Plan Pt is a 69-year-old male with past medical history significant for hyperlipidemia, obstructive sleep apnea, bicuspid aortic valve, moderate aortic stenosis, moderate aortic insufficiency, hypertension, GERD, obesity, BPH, neuroforaminal stenosis cervical spine, generalized osteoarthritis, generalized anxiety disorder presenting with shortness of breath. Patient states last Friday while eating corn he choked on it. Since then he has been getting mild shortness of breath. Has cough and bringing up phlegm. Since then always feels like something is stuck in his throat and has the feeling to cough it out. He is not getting better so he came to the ER today. States he is eating and drinking since then but feels like something is stuck in the throat. Denies any fevers. Denies chest pain. No nausea/vomiting. Shortness of breath Aspiration Pneumonitis Hemodynamically stable, on RA CT chest with no PE. Mild debris occluding the left lower bronchi concerning for mild aspiration IV Unasyn, nebs as needed while hospitalized Pulmonology was consulted, recommended/stated the following: "Add Mucinex, hypertonic saline nebulizer and flutter valve with the patient's regimen Repeat chest x-ray from today does not show any significant change from before. No atelectasis. I think it is reasonable to monitor the patient conservatively given no significant atelectasis or obstruction on the CT chest as well as the chest x- ray from today. I gave the patient option to stay in the hospital and see how he is feeling tomorrow, if there is any worsening then bronchoscopy could be considered But conservative treatment is a reasonable approach at least for now. Patient was asking if he could go home today. Would commend to complete the course of antibiotics, can transition to amox-clav for 5-7 days with probiotic Would recommend patient to be even discharged on hypertonic saline nebulized with albuterol nebulized twice a day along with Mucinex and flutter valve. Recommend repeat chest x-ray in 4-5 days. If there is any worsening in the way he feels or starts developing any chest pain then he is to come to the ER again." Pt discharged with Augmentin 875mg x 7 days, flutter valve, nebules and script for nebulizer machine. Speech was consulted, pt had video swallow. Did not show signs of aspiration. Close pulmonology and PCP follow up after discharge Notes For Next Care Provider Per pulmonology: repeat chest xray in 4-5 days return if chest pain or worsening symptoms for bronchoscopy Medication Changes From Visit Augmentin 875mg BID x7 days Mucinex Probiotic Hypertonic and xoponex nebules with script for nebulizer machine Admission HPI Per Admitting Provider 69-year-old male with past medical history significant for hyperlipidemia, obstructive sleep apnea, bicuspid aortic valve, moderate aortic stenosis, moderate aortic insufficiency, hypertension, GERD, obesity, BPH, neuroforaminal stenosis cervical spine, generalized osteoarthritis, generalized anxiety disorder, presents because of shortness of breath. Patient states last Friday while eating corn he choked on it. Since then is getting mild shortness of breath. Has cough and bringing up phlegm. Since then always feels something stuck in his throat and has feeling to cough it out. He is not getting better so he came to the ER today. States he is eating and drinking okay since then but feels something is stuck in the throat. Denies any fevers. Denies chest pain. No nausea vomiting. No headache. No dizziness. Vision is okay. No runny nose or sore throat. Normal bowel and bladder movements. Currently resting comfortably and hemodynamically stable. Past medical history. As mentioned above Past surgical history. Abdominal wall hernia repair laparoscopic. Left bimalleolar ankle fracture with fixation. Carpal tunnel surgery right. Colonoscopy. Dental surgery. Right fusion of ankle joint. Injection of lumbar cervical or thoracic spine. Bilateral hip replacement. Left knee replacement. Social history. . Quit smoking 1973. Alcohol occasional. No drug use. Family history. Maternal grandfather had cancer. Maternal uncle had tuberculosis. Paternal uncle had stroke. Father had brain aneurysm. Admission Exam Per Admitting Provider General- Not in distress. Head- atraumatic Eyes- PERRL. ENT- oropharynx clear Neck- supple, no JVD. Lungs- clear to auscultation no wheezing or crackles Heart- regular rate and rhythm; no murmur, no gallop. Abdomen- normal bowel sounds, soft, nontender, no distension Extremities: No edema or erythema seen. Neuro- alert, oriented PERRL, no facial palsy; no dysarthria; moves extremities. Skin- warm & dry Discharge Exam General: Alert, oriented. No acute distress Skin: No noted rashes or bruises Psych: Appropriate mood and affect Neuro: No gross deficits HEENT: NC/AT CV: RRR Resp: Breath sounds clear bilaterally, no increased effort of breathing. Abdomen: Soft, nontender, nondistended Extremities: No edema in lower extremities bilaterally. Updated Medication List Medication Instructions Recorded Confirmed Type citalopram 20 mg tablet 10 mg PO QAM 11/07/21 02/16/24 History lisinopril 5 mg tablet 5 mg PO QAM 11/07/21 02/16/24 History omeprazole 20 mg tablet,delayed 20 mg PO QAM 11/07/21 02/16/24 History release rosuvastatin 10 mg tablet 10 mg PO QAM 11/07/21 02/16/24 History tamsulosin 0.4 mg capsule 0.4 mg PO QAM 11/07/21 02/16/24 History Saccharomyces boulardii 250 mg 250 mg PO DAILY #30 caps 02/16/24 Rx capsule (Probiotic (S.boulardii)) amoxicillin 875 mg-potassium 1 tab PO BID #14 tabs 02/16/24 Rx clavulanate 125 mg tablet aspirin 81 mg tablet,delayed 81 mg PO DAILY 02/16/24 02/16/24 History release guaifenesin 600 mg tablet, 600 mg PO Q12 #60 tabs 02/16/24 Rx extended release 12 hr (Mucinex) ibuprofen 200 mg tablet 400 mg PO QAM 02/16/24 02/16/24 History levalbuterol HCl 1.25 mg/3 mL 1.25 mg (3 mL) NEB Q4H PRN 02/16/24 Rx solution for nebulization shortness of breath or wheezing #72 mL sodium chloride 7 % for 4 ml NEB BIDR #120 mL 02/16/24 Rx nebulization Hospital Stay Data Consultations 02/16/24 01:28 ED Decision to Admit Stat 02/16/24 08:00 Consult Pulmonology Routine Diagnostic Imagining Performed 02/15/24 21:32 CT chest diagnostic w con Stat 02/16/24 10:30 FL video swallow Routine Chest CT 02/15/24 21:32 Exam(s): CT CHEST With Contrast IV Amt: 93 ML OPTIRAY 320 EXAM: CT Chest With Intravenous Contrast CLINICAL HISTORY: Reason for exam: SOB, chest pain, dysphagia after choking on food. TECHNIQUE: Axial computed tomography images of the chest with intravenous contrast. Automated exposure control was utilized for the study. A dose lowering technique was utilized adhering to the principles of ALARA. CONTRAST: Patient received 93 ML OPTIRAY 320 of IV contrast COMPARISON: No relevant prior studies available. FINDINGS: Lungs: Mild debris occluding the LEFT lower lobe bronchi, concerning for mild aspiration. No mass. Pleural space: Unremarkable. No pneumothorax. No significant effusion. Heart: Unremarkable. No cardiomegaly. No significant pericardial effusion. No significant coronary artery calcifications. Bones/joints: Unremarkable. No acute fracture. No dislocation. Soft tissues: Unremarkable. Vasculature: Unremarkable. No thoracic aortic aneurysm. No pulmonary embolism. Lymph nodes: Unremarkable. No enlarged lymph nodes. Liver: Hepatic steatosis. IMPRESSION: 1. No pulmonary embolism. 2. Mild debris occluding the LEFT lower lobe bronchi, concerning for mild aspiration. Electronically signed by: Maikel Chacko MD 02/16/24 00:24 AM Chest X-Ray 02/16/24 07:58 SINGLE VIEW CHEST CLINICAL HISTORY: Dyspnea. Choking episode. FINDINGS: 2 AP, portable, upright chest radiographs are compared to study dated 08/26/2013 and correlated with chest CT dated 02/15/2024. The heart is enlarged. The pulmonary vasculature is noncongested. There is left basilar scarring/atelectasis. No airspace consolidation typical for pneumonia or large pleural effusion is identified. No pneumothorax is seen. The skeletal structures are osteopenic. The bony thorax is grossly intact. Arthritic change is seen in the shoulders. IMPRESSION: Cardiomegaly with no active disease in the chest. ACT 112: Negative or not required by law. Electronically signed by: Venkat Tamayo M.D. 02/16/2024 9:56 AM Videofluoroscopic Swallow 02/16/24 10:30 MODIFIED BARIUM SWALLOW CLINICAL HISTORY: assess for aspiration COMPARISON STUDY: None. FLUOROSCOPY TIME: 1.25 minutes. Ka, r: 6.21 mGy. TECHNIQUE: A modified barium swallow was performed in conjunction with Speech Pathology. The patient ingested varying consistencies of barium containing material. Video fluoroscopy was performed. FINDINGS: No tracheal aspiration was identified with thin liquids. Penetration was noted with sequential swallows of thin liquids without aspiration. There was no aspiration with nectar thick liquids, pudding consistency or crackers and pudding consistencies. Epiglottic inversion was normal. Laryngeal elevation was normal. IMPRESSION: 1. No tracheal aspiration. Penetration with thin liquids via straw, as described above. Intact swallowing mechanism. 2. Full recommendations by Speech pathology to follow. ACT 112: Negative or not required by law. Electronically signed by: Gaurav Alonzo M.D. 02/16/2024 1:36 PM Pending Results Patient Have Any Pending Studies at Discharge: No Discharge Instructions Given to Patient (Per Discharging Provider) Mr. Briones, You are being discharged per the recommendations of the logging equipment mechanic. He recommended discharge with a nebulizer machine and nebules. Please use as pr escribed. He also recommended taking an antibiotic Augmentin that you were also prescribed. Please take as directed. He would like you to continue with the mucinex and the flutter valve. He also recommends a repeat chest xray in 4-5 days. Please keep close follow up with your primary care provider after discharge. Please do not hesitate to come back to the emergency room if your symptoms worsen or return. It was a pleasure taking care of you while you were here. Total Time Total Time Spent Total Time Spent (In Minutes): 75
[2024-02-16 16:28] VITALS: PULSE 56
[2024-02-16] MEDS ORDERED: SODIUM CHLOR 7% 4 ML NEB NEB SCH (19:00)
== END 2024-02-16 16:27 | disposition home or self-care (01) | DRG 179 ==
LOC: ED 20:26 → INTOOBSV 02-16 04:02 → EDINP 02-16 04:02